=== PATIENT | male | born 1950 | race Two or more races ===

== ENCOUNTER 2018-10-27 11:50 | Inpatient (IN) | payer OTHER ==
[~2018-10-27] VITALS: Ht 185.4 cm; Wt 96.0 kg
[~2018-10-27 11:50] MED LIST: Aspirin PO; CYCL1TAB18 PO; INSUINJ47 IJ; METF-372 PO; SIMV-13 PO
[2018-10-27] MEDS ORDERED: SODIUM CHLORIDE 0.9% 1,000 ML IVB ONE (11:57)
[2018-10-27] MEDS ORDERED: CLINDAMYCIN 900MG IV 50 ML IV ONE (12:30)
[2018-10-27] MEDS ORDERED: KETOROLAC TROMETH 30 MG/ML 1ML VIAL IV ONE (12:30)
[2018-10-27 13:56] LABS: Basophils # (auto) 0 uL; Basophils % (auto) 0.4 % (0.0-2.0); Eosinophils # (auto) 0 uL; Hemoglobin 13.2 g/dL (13.5-17.5); Lymphocytes # (auto) 0.7 uL; Lymphocytes % (auto) 8.6 % (10.0-50.0); Mean Corpuscular Hemoglobin 30.7 pg (28.0-32.0); Mean Corpuscular Hgb Conc. 33.8 g/dL (32.0-36.0); Mean Corpuscular Volume 90.9 fL (80.0-100.0); Monocytes # (auto) 0.7 uL; Monocytes % (auto) 7.5 % (0.0-12.0); Neutrophils # (auto) 7.2 uL; Neutrophils % (auto) 83.5 % (37.0-80.0); Platelet Count (auto) 173 10^3/uL (140-450); Red Blood Cells 4.29 10^6/uL (4.5-5.90); Red Cell Distribution Width 13.5 % (11.8-14.3); White Blood Cell 8.7 10^3/uL (4.4-10.8)
[2018-10-27 14:09] LABS: INR 1.06 (0.9-1.15); Partial Thromboplastin Time 31.9 sec (23.78-33.04); Prothrombin Time 11.3 sec (9.27-12.13)
[2018-10-27 14:22] LABS: Alkaline Phosphatase 122 U/L (45-117); Bilirubin, Total 1.1 mg/dL (0.2-1.0); GFR African American 56 mL/min; GFR Non-African American 46 mL/min; Total Protein 7.7 g/dL (6.4-8.2)
[2018-10-27 14:46] LABS: CRP High Sensitivity > 19.0 mg/dL (< 0.3)
[2018-10-27 14:47] LABS: Anion Gap 7 (5-15); BUN/Creatinine Ratio 19.6; Blood Urea Nitrogen 31 mg/dL (7-18); Carbon Dioxide 25 mmol/L (21-32); Chloride 98 mmol/L (98-107); Potassium 4.5 mmol/L (3.5-5.1); Sodium 130 mmol/L (136-145)
[2018-10-27 14:49] LABS: Alanine Aminotransferase 16 U/L (16-61); Albumin 3.6 g/dL (3.4-5.0); Aspartate Aminotransferase 6 U/L (15-37); Magnesium 2.2 mg/dL (1.6-2.6)
[2018-10-27 14:50] LABS: Blood Alcohol < 3.0 mg/dL (0-5)
[2018-10-27 14:54] LABS: Glucose 495 mg/dL (74-106)
[2018-10-27] MEDS ORDERED: InsuLIN REG 1unit/0.01ml Soln (100units/ml) IV ONE (15:15)
[2018-10-27] MEDS ORDERED: DEXTROSE (50%) 50ML SYRG IV PRN (17:45)
[2018-10-27] MEDS ORDERED: NITROGLYCERIN 0.4 MG SL TAB SL PRN (17:45)
[2018-10-27] MEDS ORDERED: PATIENTS OWN MEDICATION (Cyclobenzaprine Hcl 10 MG) PO PRN (17:45)
[2018-10-27] MEDS ORDERED: MORPHINE SULFATE 4 MG/ML SYR/VIAL IV PRN ×2 (17:45)
[2018-10-27] MEDS ORDERED: VANCOMYCIN PER PHARMACY 0 MG IV SCH (17:45)
[2018-10-27] MEDS ORDERED: ONDANSETRON HCL 4 MG/2 ML VIAL IV PRN (17:45)
[2018-10-27] MEDS ORDERED: PATIENTS OWN MEDICATION (Simvastatin 1 TAB) PO SCH (18:00)
[2018-10-27] MEDS ORDERED: CYCLOBENZAPRINE HCL 10 MG TAB PO PRN (18:15)
--- NOTE | 2018-10-27 18:55 | NUR ---
MS admit from ER ELIZABETHCHINEDU admitted to MS. no REPORT/SBAR given by Imelda ANGELES. Patient oriented to MECHE MIKE, primary RN, unit, room, bed, and unit policies regarding patient care and visiting hours. NOted soiled dressing on left foot.Patient weighed by bedscale and encouraged to call if they need something. All questions and concerns addressed, patient verbalized understanding. Endorsed to Pari ANGELES, four slide operator to complete admission assessment for interview and to do the wound culture swab and pictures.
[2018-10-27] MEDS: metroNIDAZOLE 500MG/100ML 100 ML IV SCH ×2 (19:33→23:28)
[2018-10-27] MEDS: SODIUM CHLORIDE 0.9% 1,000 ML IV SCH (19:33)
--- NOTE | 2018-10-27 19:40 | NUR ---
CALLED PHARMACIST TO HAVE [facility]ONIGHT, SAID THEY WILL DELIVER THE MEDICINE TO MEDICATION ROOM.
--- NOTE | 2018-10-27 19:45 | NUR ---
Opening Shift Note Assumed care of patient, awake and alert. No S/S of distress/SOB or pain. Instructed on POC and to call for assist PRN, will continue to monitor for changes Q1hr and PRN.
--- NOTE | 2018-10-27 19:55 | NUR ---
FLU CX SENT TO LAB
--- NOTE | 2018-10-27 21:15 | NUR ---
URINE DRUG SCREEN SENT TO LAB
[2018-10-27] MEDS: VANCOMYCIN 1,250 MG in D5W 5% 250 ML IV SCH (21:16)
[2018-10-27] MEDS: DAKINS QUARTER STR 0.125% (NaHypochlorite) 473 ML TOPICAL SOL TOP SCH (21:16)
[2018-10-27] MEDS: ATORVASTATIN 20 MG TAB PO SCH (21:17)
--- NOTE | 2018-10-27 22:23 | NUR ---
BLOOD SUGAR 476 WILL REPEAT IN 1 HR. PATIENT CONSUME 100% OF DINNER LATE.
[2018-10-27 22:27] LABS: Alcohol, Urine < 3.0 mg/dL (0-5); Amphetamine Screen, Urine NEGATIVE (NEGATIVE); Barbiturate Scree,Urine NEGATIVE (NEGATIVE); Benzodiazephine Screen, Urine NEGATIVE (NEGATIVE); Cannabinoid Screen, Urine NEGATIVE (NEGATIVE); Cocaine Screen, Urine NEGATIVE (NEGATIVE); Opiate Scree,Urine NEGATIVE (NEGATIVE); Phencyclidine Screen, Urine NEGATIVE (NEGATIVE)
--- NOTE | 2018-10-27 23:18 | NUR ---
PHOTO OF TOE WOUND AND CULTURE TAKEN AND SENT TO LAB
[2018-10-27 23:23] VITALS: BP 112/58
[2018-10-27] MEDS: ACCU-CHEK COMFORT CURVE STRIP VI SCH (23:27)
[2018-10-27] MEDS: InsuLIN REG 1unit/0.01ml Soln (100units/ml) SC SCH (23:27)
[2018-10-27] MEDS: INSULIN LANTUS (GLARGINE) 1 /0.01ml (100units/ml) SC SCH (23:27)
[2018-10-27] MEDS: HYDROcodone-ACET 5/325MG TAB PO PRN (23:47)
[2018-10-28 05:57] VITALS: BP 107/54
[2018-10-28] MEDS: SODIUM CHLORIDE 0.9% 1,000 ML IV SCH ×2 (06:27→15:18)
[2018-10-28] MEDS: metroNIDAZOLE 500MG/100ML 100 ML IV SCH ×3 (06:28→18:07)
[2018-10-28] MEDS: InsuLIN REG 1unit/0.01ml Soln (100units/ml) SC SCH ×4 (06:28→22:17)
[2018-10-28] MEDS: INSULIN LANTUS (GLARGINE) 1 /0.01ml (100units/ml) SC SCH ×2 (06:28→22:17)
[2018-10-28] MEDS: ACCU-CHEK COMFORT CURVE STRIP VI SCH ×4 (06:28→22:05)
[2018-10-28 07:36] VITALS: BP 124/69
[2018-10-28 08:00] VITALS: BP 124/69
--- NOTE | 2018-10-28 08:30 | NUR ---
Bedside Dr. Olivarez bedside consent obtained. performed incision, debridement, and biopsy. Patient tolerated procedure.
[2018-10-28] MEDS: cefTRIAXone 1GM/50ML D5W 50 ML IV SCH (09:44)
[2018-10-28] MEDS: DAKINS QUARTER STR 0.125% (NaHypochlorite) 473 ML TOPICAL SOL TOP SCH (09:44)
[2018-10-28] MEDS: HYDROcodone-ACET 5/325MG TAB PO PRN ×2 (09:45→15:24)
[2018-10-28] MEDS ORDERED: ASPirin-EC 325mg tab PO SCH (10:00)
[2018-10-28] MEDS ORDERED: INFLUENZA QUAD 2018-2019 0.5 ML SYRG IM SCH (10:00)
[2018-10-28] MEDS ORDERED: PNEUMOCOCCAL VACC POLYS 25 MCG/0.5 ML VIAL IM SCH (10:00)
[2018-10-28] MEDS ORDERED: DAKINS QUARTER STR 0.125% (NaHypochlorite) 473 ML TOPICAL SOL TOP SCH (10:00)
[2018-10-28 11:55] LABS: Potassium 3.9 mmol/L (3.5-5.1)
[2018-10-28] MEDS ORDERED: LORazepam 2MG/ML-1ML VIAL IV ONE (12:30)
--- NOTE | 2018-10-28 13:12 | NUR ---
Opening Shift Note Assumed care of patient, awake and alert. No S/S of distress/SOB or pain. Instructed on POC and to call for assist PRN, will continue to monitor for changes. IV is right forearm patent, asymptomatic, clean and dry. Bed in lowest position and call light within reach. Wound on left greater toe was open to air. Addendum: 10/28/18 at 1322 by Guilherme Medina RN Documented incorrect time. Correct time is 0800.
--- NOTE | 2018-10-28 13:42 | NUR ---
MRI Patient taken to MRI via wheelchair, no distress noted upon departure.
[2018-10-28 14:13] VITALS: BP 103/60
--- NOTE | 2018-10-28 15:50 | NUR ---
WOUND CARE NOTE: Wound care consult received for diabetic foot ulcer Patient is currently being seen and treated by podiatry for diabetic ulcer and orders in chart for dressing changes. No need for wound care team at this time. Bedside RN, Jenifer bermudez.
[2018-10-28 17:19] VITALS: BP 133/69
--- NOTE | 2018-10-28 19:18 | NUR ---
Pt iis an alert and oriented male who is forgetful with some intermittent confusion. Pt resides with his spouse, who is is primary caregiver. Per spouse she is assited with pt's needs by her son. Pt has a cane, fww, and bsc at home. SS consult regrding pt needing assistance with insurance and finding a pcp. Spouse confirmed that pt belongs to [facility] and his pcp is Dr. Landers. No other needs verbalized at this time. Will continue to monitor and provide intervention as appropriate. Addendum: 10/28/18 at 1924 by EDILMA LORENZO Amended: Links added.
--- NOTE | 2018-10-28 19:35 | NUR ---
OPENING NOTES RECEIVED REPORT FROM DAY SHIFT NURSE. PT IS ALERT AND ORIENTED X 4 WITH NO S/S OF DISTRESS BUT PAIN 3/10 ON THE LT FOOT. DRESSING ON LT FOOT IS CLEAN AND INTACT. BED IS IN LOWEST POSITION WITH SIDE RAILS UP X 2. CALL LIGHT IS WITH IN REACH AND BED BRAKES ARE LOCKED. POC DISCUSSED WITH PATIENT.
--- NOTE | 2018-10-28 19:44 | NUR ---
Care endorsed to KARTHIK Bahena, night nurse.
[2018-10-28] MEDS: VANCOMYCIN 1,250 MG in D5W 5% 250 ML IV SCH (20:04)
[2018-10-28 22:00] VITALS: BP 134/69
[2018-10-28] MEDS: ATORVASTATIN 20 MG TAB PO SCH (22:05)
[2018-10-29] MEDS: metroNIDAZOLE 500MG/100ML 100 ML IV SCH ×3 (00:31→12:18)
[2018-10-29] MEDS: SODIUM CHLORIDE 0.9% 1,000 ML IV SCH (04:24)
[2018-10-29 05:00] VITALS: BP 138/77
--- NOTE | 2018-10-29 05:01 | NUR ---
DRESSING REINFORCED LT FOOT DRESSING LOOSE AND DETACHING, REINFORCED WITH NEW KERLIX AND ADHESIVE TAPE. WOUND EXHIBITED NO DRAINAGE NOR ODOR.
[2018-10-29] MEDS: INSULIN LANTUS (GLARGINE) 1 /0.01ml (100units/ml) SC SCH ×2 (06:34→22:23)
[2018-10-29] MEDS: ACCU-CHEK COMFORT CURVE STRIP VI SCH ×4 (06:34→22:23)
[2018-10-29] MEDS: InsuLIN REG 1unit/0.01ml Soln (100units/ml) SC SCH ×4 (06:34→22:22)
--- NOTE | 2018-10-29 07:11 | NUR ---
ENDORSED CARE TO DAY SHIFT NURSE, MAR Cordero
--- NOTE | 2018-10-29 08:00 | NUR ---
Opening Shift Note Assumed care of patient, sleeping with regular respirations. No S/S of distress/SOB or pain. IV to right forearm out, laying in bed with fluids running, angiocath intact. New IV obtained by inserting a 20 gauge to the left forearm, patent and infusing 0.9% NS @ 60 ml/hr. Instructed on POC and to call for assist PRN, verbalized understanding. Bed locked, in lowest position, call light within reach, will continue to monitor for changes Q1hr and PRN.
[2018-10-29 08:24] VITALS: BP 129/77
[2018-10-29] MEDS: ASPirin-EC 81 mg tab PO SCH (10:08)
[2018-10-29] MEDS: cefTRIAXone 1GM/50ML D5W 50 ML IV SCH (10:08)
--- NOTE | 2018-10-29 13:35 | NUR ---
Patient appears to be groggy, able to answer questions appropriately but forgetting to call for assistance, peed on the floor, this is a change in mentation from yesterday, 10/28/2018. V/S 125/76, P 104, R 18, T 97.9 F, O2 97% on room air. POC 207. Notified Dr Pearson, at bedside, new orders received and followed through. Bed alarm on for patient safety. Bed locked, in lowest position, call light within reach.
[2018-10-29 14:20] LABS: Basophils # (auto) 0 uL; Basophils % (auto) 0.7 % (0.0-2.0); Eosinophils # (auto) 0.1 uL; Eosinophils % (auto) 1.1 % (0.0-7.0); Hematocrit 36.6 % (41.0-53.0); Hemoglobin 12.7 g/dL (13.5-17.5); Lymphocytes % (auto) 15.9 % (10.0-50.0); Mean Corpuscular Hemoglobin 30.8 pg (28.0-32.0); Mean Corpuscular Hgb Conc. 34.6 g/dL (32.0-36.0); Mean Corpuscular Volume 88.9 fL (80.0-100.0); Monocytes # (auto) 0.6 uL; Monocytes % (auto) 10.1 % (0.0-12.0); Neutrophils # (auto) 4.5 uL; Neutrophils % (auto) 72.2 % (37.0-80.0); Platelet Count (auto) 187 10^3/uL (140-450); Red Blood Cells 4.12 10^6/uL (4.5-5.90); Red Cell Distribution Width 13.5 % (11.8-14.3); White Blood Cell 6.2 10^3/uL (4.4-10.8)
[2018-10-29 14:32] VITALS: BP 146/87
[2018-10-29 14:34] LABS: BUN/Creatinine Ratio 16.7; Calcium 8.2 mg/dL (8.5-10.1); Potassium 3.8 mmol/L (3.5-5.1)
[2018-10-29] MEDS: DAKINS QUARTER STR 0.125% (NaHypochlorite) 473 ML TOPICAL SOL TOP SCH (14:49)
--- NOTE | 2018-10-29 16:15 | NUR ---
Patient continually getting out of bed to urinate, does not call on the call light despite reinforcing the use of the call light. When asked which button to use to call for help when he needs to get out of bed, he is able to correctly point to the nurses button. Patient then proceeds to stand at the bedside and urinate on the floor, despite the urinal being at the bedside, within reach. Notified KARTHIK Serrato, Charge Nurse, verbalized understanding. Bed alarm remains on for patient safety. Bed locked, in lowest position, call light within reach.
[2018-10-29 16:38] VITALS: BP 125/76
--- NOTE | 2018-10-29 16:45 | NUR ---
Patient remains groggy, nut awakens to name and able to answer questions appropriately. Patient moved to room 277-A from 298-B to be closer to the nurses station. Bed alarm remains on for patient safety. Bed locked, in lowest position, call light within reach.
[2018-10-29] MEDS: ACETAMINOPHEN 500 MG TAB PO PRN (17:32)
[2018-10-29] MEDS: VANCOMYCIN 1,250 MG in D5W 5% 250 ML IV SCH ×2 (18:33→19:05)
--- NOTE | 2018-10-29 18:51 | NUR ---
FAMILY Corrie Catherine, patient's and son at bedside. Updated on patients change in mentation, being groggy, frequently getting up to urinate, urinating on the floor and not using the call light despite correctly pointing to the nurses button on the call light when asked what to do when he feels the need to get up to urinate. Per , patient had been this way at home prior to coming in, urinating on the floor and appearing "disoriented". Per Corrie, patients , patient has been seen outpatient by a Urologist for prostate "problems". signed all consents for procedure tomorrow morning. All questions and concerns answered. Bed alarm on for patient safety, bed locked, in lowest position, call light within reach.
--- NOTE | 2018-10-29 19:20 | NUR ---
Opening Shift Note Assumed care of patient, awake and alert. No S/S of distress/SOB or pain. Ins ructed on POC and to call for assist PRN, will continue to monitor for changes Q1hr and PRN.
--- NOTE | 2018-10-29 19:36 | NUR ---
Care endorsed to KARTHIK Holm, night nurse.
[2018-10-29] MEDS: ATORVASTATIN 20 MG TAB PO SCH (21:52)
[2018-10-29 22:00] VITALS: BP 118/68
[2018-10-30] MEDS: SODIUM CHLORIDE 0.9% 1,000 ML IV SCH (02:02)
--- NOTE | 2018-10-30 05:00 | NUR ---
Chlorhexidine wipes administered
[2018-10-30 05:47] LABS: Urine Bacteria NONE SEEN /hpf (None Seen); Urine Blood 1+ /uL (Negative); Urine Specific Gravity 1.007 (1.001-1.035); Urine WBC <1 /hpf (0 - 3)
[2018-10-30 05:51] VITALS: BP 119/62
[2018-10-30 06:45] LABS: Basophils # (auto) 0 uL; Basophils % (auto) 0.4 % (0.0-2.0); Eosinophils # (auto) 0.1 uL; Hematocrit 35.2 % (41.0-53.0); Hemoglobin 12.2 g/dL (13.5-17.5); Lymphocytes # (auto) 1.3 uL; Lymphocytes % (auto) 21.8 % (10.0-50.0); Mean Corpuscular Hemoglobin 30.4 pg (28.0-32.0); Mean Corpuscular Hgb Conc. 34.5 g/dL (32.0-36.0); Monocytes # (auto) 0.7 uL; Monocytes % (auto) 11.7 % (0.0-12.0); Neutrophils # (auto) 3.8 uL; Neutrophils % (auto) 65.1 % (37.0-80.0); Nucleated Red Blood Cells % 0.1 %; Platelet Count (auto) 191 10^3/uL (140-450); White Blood Cell 5.8 10^3/uL (4.4-10.8)
[2018-10-30] MEDS: InsuLIN REG 1unit/0.01ml Soln (100units/ml) SC SCH ×4 (07:00→22:26)
--- NOTE | 2018-10-30 07:00 | NUR ---
Patient is alert and awake, no distress noted and patient denies pain. Blood sugar is 189.
[2018-10-30] MEDS: INSULIN LANTUS (GLARGINE) 1 /0.01ml (100units/ml) SC SCH ×2 (07:01→22:27)
[2018-10-30] MEDS: ACCU-CHEK COMFORT CURVE STRIP VI SCH ×4 (07:02→22:27)
[2018-10-30 07:03] LABS: Calcium 8.4 mg/dL (8.5-10.1); Potassium 3.4 mmol/L (3.5-5.1)
[2018-10-30 07:05] LABS: BUN/Creatinine Ratio 16.1
[2018-10-30] MEDS ORDERED: IODIXANOL 320MG/ML 100ML BTL IV ONE (07:07)
[2018-10-30] MEDS ORDERED: LIDOCAINE 2%HCL (LOCAL ANESTH.) INJ 20ML MDV ONE ×2 (07:07→08:33)
--- NOTE | 2018-10-30 08:00 | NUR ---
OPENING SHIFT NOTE: Received report from NOC RNAlta. Assumed care of patient. Patient resting quietly in bed, denies pain. Bed in lowest position, rails x2 and call light within reach. Updated on plan of care. Will continue to monitor.
--- NOTE | 2018-10-30 08:25 | NUR ---
CATHLAB: Patient taken to cathlab via bed. Patient aware that Alta ENGLISH RN contacted family about procedure.
[2018-10-30] MEDS ORDERED: POTASSIUM CHL 20 Meq TABLET PO ONE (08:30)
[2018-10-30] MEDS ORDERED: IOHEXOL 350 MG/ML 100ML IJ ONE ×3 (08:33→11:33)
[2018-10-30] MEDS ORDERED: ANGIOMAX 250 MG VIAL IV ONE ×2 (08:44→11:17)
[2018-10-30] MEDS ORDERED: SODIUM CHL 0.9% 50 ML ONE ×2 (08:45→11:17)
[2018-10-30] MEDS ORDERED: fentaNYL CITRATE 100 MCG/2 ML VL ONE (08:45)
[2018-10-30] MEDS ORDERED: MIDAZOLAM HCL 1MG/1ML-2 ML VIAL ONE (08:45)
[2018-10-30 08:50] VITALS: BP 132/79
[2018-10-30] MEDS: cefTRIAXone 1GM/50ML D5W 50 ML IV SCH (09:00)
[2018-10-30] MEDS: DAKINS QUARTER STR 0.125% (NaHypochlorite) 473 ML TOPICAL SOL TOP SCH (10:00)
[2018-10-30] MEDS: ASPirin-EC 81 mg tab PO SCH (10:00)
[2018-10-30] MEDS ORDERED: NOREPINEPHRINE 8 MG/250ML KIT 250 ML IV ONE (12:42)
--- NOTE | 2018-10-30 13:06 | NUR ---
CATHLAB: Patient returned from cathlab via bed. Report received from KARTHIK Amanda. Visualized right groin site. Site, soft non tender and dressing C/D/I. Patient may ambulate and sit up at 1400. BRIANDA Bonner at bedside assisting with lunch. Patient denies pain. Will continue to monitor.
--- NOTE | 2018-10-30 19:21 | NUR ---
CLOSING SHIFT NOTE: Report given to NOC Aruna ANGELES. Endorsed care of patient.
[2018-10-30 22:00] VITALS: BP 159/94
[2018-10-30] MEDS: ATORVASTATIN 20 MG TAB PO SCH (22:27)
[2018-10-31 05:00] VITALS: BP 113/63
[2018-10-31] MEDS ORDERED: VANCOMYCIN 1,250 MG in D5W 5% 250 ML IV SCH (07:00)
[2018-10-31] MEDS: InsuLIN REG 1unit/0.01ml Soln (100units/ml) SC SCH ×4 (07:15→21:41)
[2018-10-31] MEDS: INSULIN LANTUS (GLARGINE) 1 /0.01ml (100units/ml) SC SCH (07:16)
[2018-10-31] MEDS: ACCU-CHEK COMFORT CURVE STRIP VI SCH ×4 (07:16→21:03)
--- NOTE | 2018-10-31 07:30 | NUR ---
Opening Shift Note Assumed care of patient, awake and alert, oriented x 4 and verbally responsive. Respiratory even and unlabored. No S/S of distress/SOB or pain. Skin is warm and dry to touch. No s/s of hyperglycemia or hypoglycemia noted. S/p LLE angiogram to right groin, dressing dry and intact. Instructed on POC and to call for assist PRN, will continue to monitor for changes Q1hr and PRN.
[2018-10-31] MEDS: ASPirin-EC 81 mg tab PO SCH (09:08)
[2018-10-31] MEDS: cefTRIAXone 1GM/50ML D5W 50 ML IV SCH (09:08)
[2018-10-31] MEDS: DAKINS QUARTER STR 0.125% (NaHypochlorite) 473 ML TOPICAL SOL TOP SCH (09:09)
[2018-10-31 09:18] VITALS: BP 149/78
[2018-10-31 09:34] VITALS: BP 100/56
--- NOTE | 2018-10-31 10:30 | NUR ---
Wound dressing changed to left foot.
[2018-10-31 13:00] VITALS: BP 131/69
[2018-10-31 17:49] VITALS: BP 137/77
--- NOTE | 2018-10-31 19:15 | NUR ---
Opening Shift Note Received report from KARTHIK Mckeon and assumed care of patient, awake and alert. No S/S of distress/SOB or pain. Instructed patient to call for assist if needed and verbalized understanding. Will continue to monitor .
[2018-10-31 21:00] VITALS: BP 145/91
[2018-10-31] MEDS: ATORVASTATIN 20 MG TAB PO SCH (21:02)
[2018-10-31] MEDS: HYDROcodone-ACET 5/325MG TAB PO PRN (21:19)
[2018-11-01] MEDS: INSULIN LANTUS (GLARGINE) 1 /0.01ml (100units/ml) SC SCH ×3 (01:33→22:31)
[2018-11-01 05:11] VITALS: BP 115/74
[2018-11-01] MEDS: HYDROcodone-ACET 5/325MG TAB PO PRN (06:07)
[2018-11-01] MEDS: ACCU-CHEK COMFORT CURVE STRIP VI SCH ×4 (06:08→22:31)
[2018-11-01] MEDS: InsuLIN REG 1unit/0.01ml Soln (100units/ml) SC SCH ×4 (06:44→22:31)
--- NOTE | 2018-11-01 07:40 | NUR ---
Opening Shift Note Assumed care of patient, awake and alert. No S/S of distress/SOB. Patient c/o Instructed on POC and to call for assist PRN, will continue to monitor for changes Q1hr and PRN. Addendum: 11/01/18 at 0939 by Milly Kellogg RN patient c/o left leg pain 03/31
[2018-11-01 08:00] VITALS: BP 124/71
[2018-11-01 08:41] VITALS: BP 96/54
[2018-11-01] MEDS: ASPirin-EC 81 mg tab PO SCH (10:20)
[2018-11-01] MEDS: MORPHINE SULFATE 4 MG/ML SYR/VIAL IV PRN ×2 (10:20→20:43)
[2018-11-01] MEDS: DAKINS QUARTER STR 0.125% (NaHypochlorite) 473 ML TOPICAL SOL TOP SCH (10:21)
[2018-11-01] MEDS: LEVOFLOXACIN 750MG 150 ML IV SCH (10:21)
--- NOTE | 2018-11-01 12:17 | NUR ---
Nutrition Assessment Notes please see attached link for complete assessment Est. Needs BW [id number] kcal (23-25 kcal/kgBW), 92-110 gms pro (1.0-1.2 gms/kgBW r/t wounds). Will continue to monitor pertinent labs and reassess nutrient needs prn Addendum: 11/01/18 at [address] Amended: Links added.
[2018-11-01 13:00] VITALS: BP 110/65
[2018-11-01 17:00] VITALS: BP 118/70
--- NOTE | 2018-11-01 20:30 | NUR ---
Opening Shift Note Assumed care of patient, awake and alert, oriented x4. No S/S of distress/SOB, c/o left great toe pain 03/31, will medicate as ordered and will reassess. Instructed on POC, verbalized understanding and to call for assist PRN, call light within reach, will continue to monitor for changes Q1hr and PRN, non skid socks on. Continue care.
[2018-11-01 22:00] VITALS: BP 150/82
[2018-11-01] MEDS: ATORVASTATIN 20 MG TAB PO SCH (22:31)
[2018-11-02 05:00] VITALS: BP 118/61
[2018-11-02] MEDS: INSULIN LANTUS (GLARGINE) 1 /0.01ml (100units/ml) SC SCH (06:17)
[2018-11-02] MEDS: InsuLIN REG 1unit/0.01ml Soln (100units/ml) SC SCH ×3 (06:17→17:27)
[2018-11-02] MEDS: ACCU-CHEK COMFORT CURVE STRIP VI SCH ×3 (06:17→17:27)
--- NOTE | 2018-11-02 07:40 | NUR ---
OPENING PATIENT IN BED, ASLEEP, BED IN LOWEST POSITION, CALL LIGHT WITHIN REACH. NO DISTRESS NOTED AT THIS TIME. WILL F/U WITH MORNING ASSESSMENT PENDING RADIOLOGY CONSULT PICC LINE CONSULT (PER NOC PATIENT IS UNDECIDED ON WHETHER HE WANTS PICC LINE) JANETH SAW PATIENT FOR DEBRIDEMENT 10/28 LOW EXTREMITY ANGIO 10/30 WITH TREE FOOT MRI SHOWS OSTEOMYELITIS BLOOD CULT NEGATIVE WOUND CULT L BIG TOE POSITIVE MRSA INFLUENZA A & B NEGATIVE P02 76.2 VANCO 5 DRUG SCREEN NEGATIVE UA 4+ [facility] WOUND CARE IS DAILY OFFLOAD THE HEELS
[2018-11-02 09:00] VITALS: BP 115/72
[2018-11-02] MEDS ORDERED: DAKI0.12 TOP (09:46)
[2018-11-02] MEDS ORDERED: ATOR20TA50 PO (09:46)
[2018-11-02] MEDS ORDERED: ASP81EC PO (09:46)
[2018-11-02] MEDS: LEVOFLOXACIN 750MG 150 ML IV SCH (10:46)
[2018-11-02] MEDS: ASPirin-EC 81 mg tab PO SCH (10:46)
[2018-11-02] MEDS: ACETAMINOPHEN 500 MG TAB PO PRN (10:46)
[2018-11-02] MEDS: DAKINS QUARTER STR 0.125% (NaHypochlorite) 473 ML TOPICAL SOL TOP SCH (10:51)
--- NOTE | 2018-11-02 11:28 | NUR ---
ORDER AND CLINICALS FAXED TO [facility] AND [facility] FOR HOME IV ABX. DECEMBER IN MANAGED CARE TO FOLLOW UP WITH AUTHORIZATION.
[2018-11-02 11:29] LABS: INR 1.07 (0.9-1.15); Prothrombin Time 11.4 sec (9.27-12.13)
[2018-11-02 13:00] VITALS: BP 102/64
--- NOTE | 2018-11-02 13:50 | NUR ---
SPOKE WITH PATIENT'S LUCINA ... SHE IS WILLING TO LEARN THE ABX INFUSION AND ASSIST WITH ADMINISTRATION. JUAN AT [facility] ADVISED.
--- NOTE | 2018-11-02 14:54 | NUR ---
PICC line placement Patient/Patient significant other educated on need for PICC line placement. All risks and benefits explained and all questions and concerns addressed prior to procedure. Noted past medical history and allergies with no contraindications. INR and Plt counts within acceptable range. 4 fr PICC line inserted via right basilic vein using [employer] US and Tip Location System. Sterile technique with maximum barrier precautions utilized. Blood return obtained from the lumen and each flushed easily with NS using proper technique. PICC secured with Stat-lock; biodisc and occlusive dressing applied. Stat portable chest x-ray obtained for PICC tip placement. *Baseline Arm Circumference 27cm. Internal length 47cm. External length 1cm. PICC lot # [id number]. Note: Placed easily
[2018-11-02] MEDS ORDERED: LIDOCAINE 1% (LOCAL ANESTH.) PF 5ml SDV ID ONE (15:00)
--- NOTE | 2018-11-02 15:38 | NUR ---
PATIENT HAS BEEN ACCEPTED AT [facility] WITH START OF CARE 11-03-2018 . [facility] INFUSION WILL ARRANGE WITH PATIENT'S A TIME FOR MEDICATION DELIVERY SAWPNA. RADHA [phone].
--- NOTE | 2018-11-02 15:52 | NUR ---
OK to use PICC line Xray completed. OK to use PICC line by Dr. Mckeon.
[2018-11-02 17:00] VITALS: BP 105/66
--- NOTE | 2018-11-02 19:15 | NUR ---
Discharge instructions given as ordered. Encourage to follow up with PMD as instructed. All questions and concerns addressed. Patient verbalized understanding IV removed with catheter intact, pressure dressing applied. Patient taken to vehicle via wheelchair with all personal belongings, accompanied by staff and family member. No distress noted at time of departure. HOME HEALTH HAS BEEN SET UP, SAW THE NOTE AROUND 1850 SENT PATIENT HOME ONCE I SAW HE WAS CLEARED AND SET UP TO GO.
[2018-11-02] MEDS ORDERED: SODIUM CHLOR 0.9% PF (SALINE LOCK) 10ML VIAL/SYR IV SCH (22:00)
== END 2018-11-02 19:15 | disposition home health service (06) | DRG 252 ==
LOC: ER 11:50 → OVERFLOW 17:46 → WEST WING 18:55
PROVIDERS: ADMIT Nurse Practitioner Acute Care; ATTEND Internal Medicine
PROC: 0JBR0ZZ Excision of Left Foot Subcutaneous Tissue and Fascia, Open Approach (ICD-10-PCS; principal; 2018-10-28)
PROC: 047S3ZZ Dilation of Left Posterior Tibial Artery, Percutaneous Approach (ICD-10-PCS; 2018-10-30)
PROC: 047U3ZZ Dilation of Left Peroneal Artery, Percutaneous Approach (ICD-10-PCS; 2018-10-30)
PROC: B41G1ZZ Fluoroscopy of Left Lower Extremity Arteries using Low Osmolar Contrast (ICD-10-PCS; 2018-10-30)
PROC: B41F1ZZ Fluoroscopy of Right Lower Extremity Arteries using Low Osmolar Contrast (ICD-10-PCS; 2018-10-30)
PROC: 02HV33Z Insertion of Infusion Device into Superior Vena Cava, Percutaneous Approach (ICD-10-PCS; 2018-11-02)
DX: E10.52 Type 1 diabetes mellitus with diabetic peripheral angiopathy with gangrene (principal); N17.0 Acute kidney failure with tubular necrosis; L03.116 Cellulitis of left lower limb; M86.10 Other acute osteomyelitis, unspecified site; I70.262 Atherosclerosis of native arteries of extremities with gangrene, left leg; E10.69 Type 1 diabetes mellitus with other specified complication; E10.65 Type 1 diabetes mellitus with hyperglycemia; E10.621 Type 1 diabetes mellitus with foot ulcer; E10.42 Type 1 diabetes mellitus with diabetic polyneuropathy; L97.529 Non-pressure chronic ulcer of other part of left foot with unspecified severity; B95.61 Methicillin susceptible Staphylococcus aureus infection as the cause of diseases classified elsewhere; E10.610 Type 1 diabetes mellitus with diabetic neuropathic arthropathy; D64.9 Anemia, unspecified; E78.5 Hyperlipidemia, unspecified; I10 Essential (primary) hypertension; Z96.653 Presence of artificial knee joint, bilateral; I67.2 Cerebral atherosclerosis; M77.30 Calcaneal spur, unspecified foot; Z79.4 Long term (current) use of insulin; Z86.73 Personal history of transient ischemic attack (TIA), and cerebral infarction without residual deficits; Z89.422 Acquired absence of other left toe(s); Z23 Encounter for immunization; Z87.891 Personal history of nicotine dependence; Z82.49 Family history of ischemic heart disease and other diseases of the circulatory system; Z83.3 Family history of diabetes mellitus
CPT/HCPCS: 36415; 36569; 36600; 37228; 70450; 71045; 73630; 73718; 75630; 75716; 76000; 76942; 80048; 80053; 80202; 80307; 80320; 81001; 82140; 82805; 82962; 83036; 83605; 83735; 83880; 84443; 84484; 85025; 85610; 85652; 85730; 86141; 86850; 86900; 86901; 87040; 87077; 87186; 87205; 87804; 93923; 94761; 96361; 96365; 96375; A6257; G0378; J0696; J1815; J1885; J1956; J2250; J3490; J7060; Q9967

== ENCOUNTER 2018-11-17 14:53 | Inpatient (IN) | payer OTHER ==
[~2018-11-17] VITALS: Ht 185.4 cm; Wt 84.4 kg
[~2018-11-17 14:53] MED LIST changes: +ASP81EC PO; +ATOR20TA50 PO; -Aspirin PO; +DAKI0.12 TOP; -SIMV-13 PO
--- NOTE | 2018-11-17 15:30 | NUR ---
HOSPITALIST AT BEDSIDE. Addendum: 11/17/18 at 1654 by MAR LEDESMA RN CORRECT TIME FOR NOTE IS 8066
--- NOTE | 2018-11-17 15:50 | NUR ---
Direct Admit Note CHINEDU JOHNSON admitted to Telemetry/MS unit as a direct admit per MD order. Patient oriented to MAR blake RN, unit, room, bed, and unit policies regarding patient care and visiting hours. Patient encouraged to call if they need something. All questions and concerns addressed, patient verbalized understanding. MD notified of patients arrival and admit orders received. Addendum: 11/17/18 at 1841 by MAR LEDESMA RN CAME IN WITH PICC TO RIGHT UPPER ARM DATED 11/11/18, DRESSING CLEAN, DRY, AND INTACT.
--- NOTE | 2018-11-17 16:10 | NUR ---
WOUND PICTURES TAKEN.
[2018-11-17] MEDS ORDERED: MORPHINE SULFATE 4 MG/ML SYR/VIAL IV PRN (16:15)
[2018-11-17] MEDS ORDERED: DEXTROSE (50%) 50ML SYRG IV PRN (16:15)
[2018-11-17] MEDS ORDERED: traMADol HCL 50 MG TAB PO PRN (16:15)
[2018-11-17] MEDS ORDERED: ONDANSETRON HCL 4 MG/2 ML VIAL IV PRN (16:15)
[2018-11-17] MEDS ORDERED: VANCOMYCIN PER PHARMACY 0 MG IV SCH (16:15)
[2018-11-17] MEDS ORDERED: NITROGLYCERIN 0.4 MG SL TAB SL PRN (16:15)
[2018-11-17] MEDS ORDERED: ACETAMINOPHEN 500 MG TAB PO PRN (16:15)
--- NOTE | 2018-11-17 16:30 | NUR ---
PER HOSPITALIST, OK TO USE PICC.
--- NOTE | 2018-11-17 16:45 | NUR ---
PATIENT GIVEN SNACK PER REQUEST
[2018-11-17 17:00] VITALS: BP 107/60
[2018-11-17] MEDS: LEVOFLOXACIN 750MG 150 ML IV SCH (18:00)
[2018-11-17 18:12] LABS: Basophils # (auto) 0 uL; Basophils % (auto) 0.6 % (0.0-2.0); Eosinophils # (auto) 0.1 uL; Eosinophils % (auto) 1.9 % (0.0-7.0); Hematocrit 35.4 % (41.0-53.0); Lymphocytes # (auto) 1.3 uL; Lymphocytes % (auto) 25.8 % (10.0-50.0); Mean Corpuscular Hemoglobin 30.1 pg (28.0-32.0); Mean Corpuscular Hgb Conc. 33.9 g/dL (32.0-36.0); Mean Corpuscular Volume 88.6 fL (80.0-100.0); Monocytes # (auto) 0.4 uL; Monocytes % (auto) 7.3 % (0.0-12.0); Neutrophils # (auto) 3.1 uL; Neutrophils % (auto) 64.4 % (37.0-80.0); Platelet Count (auto) 253 10^3/uL (140-450); Red Blood Cells 3.99 10^6/uL (4.5-5.90); Red Cell Distribution Width 13.6 % (11.8-14.3); White Blood Cell 4.9 10^3/uL (4.4-10.8)
[2018-11-17 18:26] LABS: BUN/Creatinine Ratio 20.9; Calcium 8.5 mg/dL (8.5-10.1); Potassium 4.4 mmol/L (3.5-5.1)
[2018-11-17] MEDS: ACCU-CHEK COMFORT CURVE STRIP VI SCH ×2 (18:29→21:35)
[2018-11-17] MEDS: InsuLIN REG 1unit/0.01ml Soln (100units/ml) SC SCH ×2 (18:29→21:40)
[2018-11-17] MEDS ORDERED: LEVO750T2 IV (18:37)
[2018-11-17] MEDS ORDERED: INSLANTI SC (18:37)
--- NOTE | 2018-11-17 19:05 | NUR ---
Opening Shift Note SBAR report received from KARTHIK Burgess. Assumed care of patient, awake and alert 4x, visitors at bedside. No S/S of distress/SOB or pain. Instructed on POC and to call for assistance PRN, will continue to monitor for changes Q1hr and PRN.Physical Assessment to follow.
--- NOTE | 2018-11-17 19:13 | NUR ---
CLOSING NOTE REPORT GIVEN TO BEEF LUGGER RN. FAMILY AT BEDSIDE. NO S/S OF DISTRESS. IV PATENT AND RUNNING. DRESSING TO LEFT FOOT CLEAN, DRY, AND INTACT. BED IN LOW LOCK POSITION, CALL LIGHT IN REACH.
[2018-11-17] MEDS ORDERED: VANCOMYCIN 1GM/250ML 250 ML IV ONE (20:00)
[2018-11-17 20:05] VITALS: BP 98/54
[2018-11-17] MEDS: DOCUSATE SOD 100 MG CAP PO SCH (21:27)
[2018-11-17] MEDS: ATORVASTATIN 20 MG TAB PO SCH (21:27)
[2018-11-17] MEDS: INSULIN LANTUS (GLARGINE) 1 /0.01ml (100units/ml) SC SCH (21:40)
[2018-11-18 05:02] VITALS: BP 123/79
[2018-11-18] MEDS: InsuLIN REG 1unit/0.01ml Soln (100units/ml) SC SCH ×4 (06:25→22:00)
[2018-11-18] MEDS: ACCU-CHEK COMFORT CURVE STRIP VI SCH ×4 (06:25→21:57)
--- NOTE | 2018-11-18 08:00 | NUR ---
ASSESSMENT NOTE PT IS ALERT ORIENTED X4, RESTING IN BED COMFORTABLY, DENIES ANY PAIN AT THIS TIME 0/10, DRY CLEAN DRESSING NOTED AT LEFT FOOT AREA, SELF REPOSITION NEEDED, CALL LIGHT WITHIN REACH.
[2018-11-18] MEDS: DOCUSATE SOD 100 MG CAP PO SCH ×2 (08:40→21:58)
[2018-11-18] MEDS: PANTOPRAZOLE 40 MG TAB PO SCH (08:40)
--- NOTE | 2018-11-18 09:00 | NUR ---
FAMILY PT SKY AT BED SIDE
[2018-11-18 09:29] VITALS: BP 130/76
[2018-11-18 10:43] LABS: Calcium 8.5 mg/dL (8.5-10.1); Potassium 4.3 mmol/L (3.5-5.1)
[2018-11-18 10:45] LABS: BUN/Creatinine Ratio 21.1
[2018-11-18 12:55] VITALS: BP 136/74
--- NOTE | 2018-11-18 13:30 | NUR ---
DR GALLEGOS AT BED SIDE FOLLOWING UP ON PT WITH NEW ORDERS, PT'S AT BED SIDE AWARE.
[2018-11-18] MEDS: SODIUM CHLORIDE 0.9% 1,000 ML IV SCH (14:26)
[2018-11-18] MEDS: VANCOMYCIN 1GM/250ML 250 ML IV SCH (14:26)
--- NOTE | 2018-11-18 16:00 | NUR ---
PT IS OUT OF BED, SITTING ON A CHAIR AT BED SIDE WITH HIS .
[2018-11-18 16:35] VITALS: BP 124/74
[2018-11-18] MEDS: LEVOFLOXACIN 750MG 150 ML IV SCH (17:30)
--- NOTE | 2018-11-18 18:07 | NUR ---
PT CONTINUE STABLE, CONTINUE MONITORING.
[2018-11-18] MEDS: INSULIN LANTUS (GLARGINE) 1 /0.01ml (100units/ml) SC SCH (21:57)
[2018-11-18] MEDS: ATORVASTATIN 20 MG TAB PO SCH (21:58)
[2018-11-18 22:00] VITALS: BP 112/64
[2018-11-19] MEDS: VANCOMYCIN 1GM/250ML 250 ML IV SCH ×2 (04:19→17:38)
[2018-11-19 04:42] VITALS: BP 118/72
--- NOTE | 2018-11-19 05:02 | NUR ---
Shift Note The patient had an uneventful night, tolerated treatments well, had no complaints. He was able to sleep most of the night, no pain issues. He awaken several times throughout the night but was able to go back to sleep. Will continue to monitor.
[2018-11-19] MEDS: InsuLIN REG 1unit/0.01ml Soln (100units/ml) SC SCH ×4 (06:39→22:24)
[2018-11-19] MEDS: ACCU-CHEK COMFORT CURVE STRIP VI SCH ×4 (06:39→22:24)
[2018-11-19 06:52] LABS: Basophils # (auto) 0.1 uL; Eosinophils # (auto) 0.2 uL; Eosinophils % (auto) 3.3 % (0.0-7.0); Hematocrit 36.5 % (41.0-53.0); Hemoglobin 12.5 g/dL (13.5-17.5); Lymphocytes # (auto) 1.7 uL; Lymphocytes % (auto) 29.8 % (10.0-50.0); Mean Corpuscular Hgb Conc. 34.1 g/dL (32.0-36.0); Monocytes # (auto) 0.4 uL; Monocytes % (auto) 6.5 % (0.0-12.0); Neutrophils # (auto) 3.5 uL; Neutrophils % (auto) 59.4 % (37.0-80.0); Nucleated Red Blood Cells % 0.1 %; Platelet Count (auto) 256 10^3/uL (140-450); Red Blood Cells 4.15 10^6/uL (4.5-5.90); Red Cell Distribution Width 13.4 % (11.8-14.3); White Blood Cell 5.8 10^3/uL (4.4-10.8)
[2018-11-19 07:08] LABS: Magnesium 1.8 mg/dL (1.6-2.6); Potassium 4.4 mmol/L (3.5-5.1)
[2018-11-19 07:10] LABS: BUN/Creatinine Ratio 23.6
[2018-11-19] MEDS: SODIUM CHLORIDE 0.9% 1,000 ML IV SCH (08:10)
[2018-11-19 09:00] VITALS: BP 135/76
[2018-11-19] MEDS: PANTOPRAZOLE 40 MG TAB PO SCH (10:29)
[2018-11-19] MEDS: DOCUSATE SOD 100 MG CAP PO SCH (10:29)
[2018-11-19 11:58] VITALS: BP 115/66
[2018-11-19] MEDS ORDERED: MAGNESIUM SULFATE 1GM/100ML 100 ML IV ONE (12:00)
--- NOTE | 2018-11-19 14:20 | NUR ---
WOUND CARE NOTE: Wound care consult received for left toe necrotic wound. Patient is a 68 yo male admitted for diabetic foot wound to left foot. Patient with history of HTN, HLD, diabetes, osteomyelitis, CVA, and IL. Patient recently discharge from [facility] on IV antibiotics for left great toe wound. Patient was told to return to ER when wound was not improving. Patient is alert, denies pain. Last Martínez score is 19. Patient has been seen by podiatry and patient is agreeable to have toe now amputated. RECOMMENDATIONS: Nursing to cleanse left great toe wound with wound cleanser, pat dry, apply betadine moist gauze and wrap with kerlex daily/PRN until surgery; further orders to be given by podiatry; no need for wound care team to follow.
[2018-11-19] MEDS: LEVOFLOXACIN 750MG 150 ML IV SCH (16:33)
[2018-11-19 16:51] VITALS: BP 127/74
[2018-11-19] MEDS ORDERED: DEXTROSE (50%) 50ML SYRG IV PRN (18:30)
[2018-11-19 22:00] VITALS: BP 125/70
[2018-11-19] MEDS ORDERED: INSULIN LANTUS (GLARGINE) 1 /0.01ml (100units/ml) SC SCH (22:00)
[2018-11-19] MEDS: POVIDONE IODINE 10 % TOPICAL OINT 30GM TOP SCH (22:23)
[2018-11-19] MEDS: DAKINS HALF STR 0.25% (NaHypochlorite) 473 ML TOPICAL SOL TOP SCH (22:23)
[2018-11-20 05:00] VITALS: BP 126/76
[2018-11-20] MEDS: ACCU-CHEK COMFORT CURVE STRIP VI SCH ×4 (06:15→22:24)
[2018-11-20] MEDS: InsuLIN REG 1unit/0.01ml Soln (100units/ml) SC SCH ×4 (06:15→22:24)
--- NOTE | 2018-11-20 06:46 | NUR ---
Shift Note The patient had an uneventful night, tolerated treatments well, had no complaints. The cigarette tester said he wanted to take the patient to surgery today to remove the Left Great Toe but didn't place orders or have the patient scheduled as of 0600hrs. Kept the patient NPO as of midnight and explained to him and his family the current plan. The seemed a little frustrated not knowing a specific time but understood the explanation. Will continue to monitor.
[2018-11-20 09:10] VITALS: BP 139/84
[2018-11-20] MEDS: PANTOPRAZOLE 40 MG TAB PO SCH (09:47)
[2018-11-20] MEDS: POVIDONE IODINE 10 % TOPICAL OINT 30GM TOP SCH ×2 (09:47→22:00)
[2018-11-20] MEDS: DAKINS HALF STR 0.25% (NaHypochlorite) 473 ML TOPICAL SOL TOP SCH ×2 (09:47→22:00)
[2018-11-20] MEDS: LEVOFLOXACIN 750MG 150 ML IV SCH (09:47)
[2018-11-20] MEDS: traMADol HCL 50 MG TAB PO PRN (09:48)
[2018-11-20] MEDS ORDERED: VANCOMYCIN PER PHARMACY 0 MG IV SCH (10:00)
--- NOTE | 2018-11-20 12:20 | NUR ---
Nutrition Assessment Notes Please see attached link for complete assessment Est. Needs based on BW (93 kg): [id number] kcal (23-25 kcal/kgBW), 93-111 gms pro (1.0-1.2 gms/kgBW r/t wounds). Will continue to monitor pertinent labs and reassess nutrient needs prn Addendum: 11/20/18 at [address] Amended: Links added.
[2018-11-20 13:00] VITALS: BP 133/74
[2018-11-20 16:51] VITALS: BP 114/81
[2018-11-20] MEDS: VANCOMYCIN 1,250 MG in D5W 5% 250 ML IV SCH (16:53)
[2018-11-20 21:46] VITALS: BP 123/67
[2018-11-20] MEDS: MULTIPLE VITAMINS W/ MINERALS TAB PO SCH (22:21)
[2018-11-20] MEDS: ASCORBIC ACID 500 MG TAB PO SCH (22:21)
[2018-11-20] MEDS: INSULIN LANTUS (GLARGINE) 1 /0.01ml (100units/ml) SC SCH (22:23)
[2018-11-21 04:44] VITALS: BP 98/61
[2018-11-21] MEDS: VANCOMYCIN 1,250 MG in D5W 5% 250 ML IV SCH ×2 (05:18→16:50)
[2018-11-21] MEDS: InsuLIN REG 1unit/0.01ml Soln (100units/ml) SC SCH ×4 (06:13→21:56)
[2018-11-21] MEDS: ACCU-CHEK COMFORT CURVE STRIP VI SCH ×4 (06:14→21:57)
--- NOTE | 2018-11-21 06:19 | NUR ---
Shift Nurse The patient had an uneventful night, tolerated treatments well, had no complaints. Changed the patient's dressing during the shift, it continues to produce purulent drainage with black/necrotic tissue. Removed the old dressing using saline to ensure the dressing didn't stick to the wound. Cleaned the wound with Daikin's solution and then painted the wound with iodine. Dressed the wound with 4x4 gauze and kerlix. The patient tolerated it well, denied pain throughout. He was able to sleep most of the shift, only woke for medications. Will continue to monitor.
[2018-11-21 06:26] LABS: Calcium 8.8 mg/dL (8.5-10.1); Potassium 4.4 mmol/L (3.5-5.1)
[2018-11-21 06:29] LABS: BUN/Creatinine Ratio 20.4
[2018-11-21 09:00] VITALS: BP 142/80
[2018-11-21] MEDS: POVIDONE IODINE 10 % TOPICAL OINT 30GM TOP SCH ×2 (10:04→21:57)
[2018-11-21] MEDS: DAKINS HALF STR 0.25% (NaHypochlorite) 473 ML TOPICAL SOL TOP SCH ×2 (10:04→21:57)
[2018-11-21] MEDS: LEVOFLOXACIN 750MG 150 ML IV SCH (10:06)
[2018-11-21] MEDS: MULTIPLE VITAMINS W/ MINERALS TAB PO SCH ×2 (10:06→21:55)
[2018-11-21] MEDS: PANTOPRAZOLE 40 MG TAB PO SCH (10:06)
[2018-11-21] MEDS: ASCORBIC ACID 500 MG TAB PO SCH ×2 (10:06→21:55)
[2018-11-21] MEDS: traMADol HCL 50 MG TAB PO PRN (11:04)
[2018-11-21 12:58] VITALS: BP 120/71
[2018-11-21] MEDS ORDERED: DEXTROSE (50%) 50ML SYRG IV PRN (13:15)
[2018-11-21 17:00] VITALS: BP 118/70
--- NOTE | 2018-11-21 19:50 | NUR ---
Opening Shift Note Assumed care of patient, awake and alert. No S/S of distress/SOB or pain. Instructed on POC and to call for assist PRN. Bed in lowest locked position, call light within reach, side rails up x2. Will continue to monitor for changes Q1hr and PRN.
[2018-11-21] MEDS: INSULIN LANTUS (GLARGINE) 1 /0.01ml (100units/ml) SC SCH (21:56)
[2018-11-21 22:00] VITALS: BP 151/85
[2018-11-22 05:00] VITALS: BP 113/67
--- NOTE | 2018-11-22 05:20 | NUR ---
Called lab in regards to patient's pending vanco trough to be drawn for scheduled vanco at 0500. There was no answer, will try again in a few minutes.
--- NOTE | 2018-11-22 05:40 | NUR ---
Called lab Informed laborer [employer] of pending vanco trough draw at 0400 for scheduled vanco at 0500. Stated that the crane hoist or lift operator should be in soon and will make them aware of pending lab draw.
[2018-11-22] MEDS: InsuLIN REG 1unit/0.01ml Soln (100units/ml) SC SCH ×4 (06:51→22:44)
[2018-11-22] MEDS: VANCOMYCIN 1,250 MG in D5W 5% 250 ML IV SCH ×2 (06:51→17:23)
[2018-11-22] MEDS: ACCU-CHEK COMFORT CURVE STRIP VI SCH ×4 (06:51→22:43)
--- NOTE | 2018-11-22 07:20 | NUR ---
OPENING SHIFT ASSUMED CARE OF PATIENT FROM MARKETING MANAGER RN KELLY. PATIENT IS AWAKE AND ALERT X4. PATIENT HAS NO S/S OF DISTRESS/SOB OR PAIN. INSTRUCTED PATIENT ON POC, PATIENT VERBALIZED UNDERSTANDING. BED IS IN LOWEST POSITION WITH SIDE RAILS RAISED X2, BED WHEELS LOCKED, AND CALL LIGHT WITHIN REACH. WILL CONTINUE TO MONITOR.
[2018-11-22 08:15] VITALS: BP 129/74
[2018-11-22 09:00] VITALS: BP 129/74
[2018-11-22] MEDS: POVIDONE IODINE 10 % TOPICAL OINT 30GM TOP SCH ×2 (10:00→22:43)
[2018-11-22] MEDS: DAKINS HALF STR 0.25% (NaHypochlorite) 473 ML TOPICAL SOL TOP SCH ×2 (10:00→22:43)
[2018-11-22] MEDS: MULTIPLE VITAMINS W/ MINERALS TAB PO SCH ×2 (10:13→22:43)
[2018-11-22] MEDS: ASCORBIC ACID 500 MG TAB PO SCH ×2 (10:13→22:43)
[2018-11-22] MEDS: LEVOFLOXACIN 750MG 150 ML IV SCH (10:13)
[2018-11-22] MEDS: PANTOPRAZOLE 40 MG TAB PO SCH (10:13)
[2018-11-22 12:32] VITALS: BP 120/79
--- NOTE | 2018-11-22 17:09 | NUR ---
CALLED PHARMACY REGARDING VANCOMYCIN. INFORMED PHARMACIST VANCOMYCIN HAS NOT BEEN SENT UP. PER PHARMACIST THEY WILL SEND IT UP IN 5 MINS VIA BULLET.
[2018-11-22 17:44] VITALS: BP 125/83
--- NOTE | 2018-11-22 19:20 | NUR ---
Opening Shift Note Assumed care of patient, awake and alert. No S/S of distress/SOB. Instructed on POC and to call for assist PRN. Bed in lowest locked position, call light within reach, side rails up x2. Will continue to monitor for changes Q1hr and PRN.
--- NOTE | 2018-11-22 19:20 | NUR ---
CLOSING SHIFT NOTE ENDORSED CARE TO HEALTH OCCUPATIONS TEACHER RN KELLY. PATIENT HAS NO S/S OF DISTRESS/SOB OR PAIN AT THIS TIME.
[2018-11-22] MEDS: traMADol HCL 50 MG TAB PO PRN (19:36)
[2018-11-22 22:00] VITALS: BP 126/73
[2018-11-22] MEDS: INSULIN LANTUS (GLARGINE) 1 /0.01ml (100units/ml) SC SCH (22:43)
--- NOTE | 2018-11-23 04:30 | NUR ---
Chg wipes and linen change done at this time.
[2018-11-23] MEDS: VANCOMYCIN 1,250 MG in D5W 5% 250 ML IV SCH ×2 (04:53→16:55)
[2018-11-23 05:09] VITALS: BP 129/80
[2018-11-23 05:27] LABS: Urine Bacteria FEW /hpf (None Seen); Urine Blood Negative /uL (Negative); Urine Specific Gravity 1.009 (1.001-1.035); Urine WBC <1 /hpf (0 - 3)
[2018-11-23 06:33] LABS: Basophils # (auto) 0 uL; Basophils % (auto) 0.7 % (0.0-2.0); Eosinophils # (auto) 0.1 uL; Eosinophils % (auto) 3.5 % (0.0-7.0); Hematocrit 32.2 % (41.0-53.0); Hemoglobin 11.2 g/dL (13.5-17.5); Lymphocytes # (auto) 1.4 uL; Lymphocytes % (auto) 34.5 % (10.0-50.0); Mean Corpuscular Hemoglobin 30.3 pg (28.0-32.0); Mean Corpuscular Hgb Conc. 34.7 g/dL (32.0-36.0); Mean Corpuscular Volume 87.3 fL (80.0-100.0); Monocytes # (auto) 0.4 uL; Monocytes % (auto) 9.4 % (0.0-12.0); Neutrophils # (auto) 2.1 uL; Neutrophils % (auto) 51.9 % (37.0-80.0); Nucleated Red Blood Cells % 0.1 %; Platelet Count (auto) 189 10^3/uL (140-450); Red Blood Cells 3.69 10^6/uL (4.5-5.90); Red Cell Distribution Width 13.5 % (11.8-14.3)
[2018-11-23 06:47] LABS: Calcium 8.8 mg/dL (8.5-10.1); INR 1.07 (0.9-1.15); Magnesium 1.9 mg/dL (1.6-2.6); Partial Thromboplastin Time 28.7 sec (23.78-33.04); Potassium 4.5 mmol/L (3.5-5.1); Prothrombin Time 11.4 sec (9.27-12.13)
[2018-11-23] MEDS: ACCU-CHEK COMFORT CURVE STRIP VI SCH ×4 (06:47→21:45)
[2018-11-23] MEDS: InsuLIN REG 1unit/0.01ml Soln (100units/ml) SC SCH ×4 (06:47→22:01)
--- NOTE | 2018-11-23 06:47 | NUR ---
Glucose at 240, insulin held due to patient being NPO for procedure.
[2018-11-23 06:49] LABS: BUN/Creatinine Ratio 19.1
[2018-11-23] MEDS ORDERED: BACITRACIN INJ 50000 UNIT VIAL ONE (06:55)
--- NOTE | 2018-11-23 06:55 | NUR ---
Patient transported down to OR for procedure, on bed. Patient tolerated well.
[2018-11-23] MEDS ORDERED: LIDOCAINE 1% HCL (LOCAL ANESTH.) INJ 20ML MDV ONE (08:33)
[2018-11-23] MEDS ORDERED: BUPIVACAINE HCL 50 ML ONE (08:33)
[2018-11-23] MEDS ORDERED: BUPIVACAINE 0.25% INJ 50ML VIAL ONE (08:34)
[2018-11-23] MEDS ORDERED: LIDOCAINE 1% INJ PF 5ML AMP ONE (08:55)
[2018-11-23] MEDS ORDERED: SUCCINYLCHOLINE CHLORIDE 20 MG/ML 10ML VIAL IV ONE (08:56)
[2018-11-23] MEDS ORDERED: MIDAZOLAM HCL 1MG/1ML-2 ML VIAL ONE (08:59)
[2018-11-23] MEDS ORDERED: diphenhdrAMINE HCL 50 MG/1 ML VL ONE (09:00)
[2018-11-23] MEDS ORDERED: GLYCOPYRROLATE 0.2 MG/ML 1ML VIAL ONE (09:00)
[2018-11-23] MEDS ORDERED: METOCLOPRAMIDE HCL 5MG/ml INJ 2ml VIAL ONE (09:00)
[2018-11-23] MEDS ORDERED: PROPOFOL 10 MG/ML 20 ML IV ONE (09:04)
[2018-11-23] MEDS ORDERED: HYDROmorphone HCL 2 MG/ML VL IV PRN (09:15)
[2018-11-23] MEDS ORDERED: NALOXONE HCL 0.4 MG/ML VIAL IV PRN (09:15)
[2018-11-23] MEDS ORDERED: ACCU-CHEK COMFORT CURVE STRIP VI ONE (09:15)
[2018-11-23] MEDS ORDERED: ONDANSETRON HCL 4 MG/2 ML VIAL IV ONE (09:15)
[2018-11-23] MEDS: DAKINS HALF STR 0.25% (NaHypochlorite) 473 ML TOPICAL SOL TOP SCH ×2 (10:00→22:00)
[2018-11-23] MEDS: POVIDONE IODINE 10 % TOPICAL OINT 30GM TOP SCH ×2 (10:00→22:00)
--- NOTE | 2018-11-23 10:45 | NUR ---
Patient came back to the floor, dressing with wound vac to the left foot.Two post op shoes size L and XL at bedside.
--- NOTE | 2018-11-23 10:46 | NUR ---
WOUND CARE NOTE: Wound care in to see patient to check wound vac applied in O.R. Patient just arrived from O.R. He's s/p Left Foot Hallux amputation, L foot Excisional Debridement and application of Wound Vac today by Dr. Olivarez. Patient is resting in bed in Rm. 240B. Patient is awake, able to verbalize needs. He's self turn and reposition and his current Martínez score of 21. Patient's L foot wound has intact wound vac vac dressing with Kerlix outer dressing. Info vac running well at 125 mmHg continuos per MD order. Good seal noted, no leak detected. Minimal serosanguineous drainage noted in tubing. Reviewed with KARTHIK Mckeon Info vac trouble shouting and monitoring for bleeding. Patient and family education provided regarding NPWT, verbalized understanding. No other wound noted. Patient is on IV antibiotic: Vancomycin and Levaquin. He's also on special Diet and Multi Vitamins. Will fill up paper works for Home Wound Vac. RECOMMENDATION: Q3Days/PRN dressing change to L foot wound per Dr. Olivarez's order, continuation of other wound care orders prescribed by MD, continue with skin/wound plan of care, continue monitoring by wound care while patient is hospitalized. Addendum: 11/23/18 at 1649 by Keren Hernandez RN Amended: Links added. Addendum: 11/23/18 at 1746 by Keren Hernandez RN Home Wound Vacc request form filled up and placed in patient's chart. Unable to contact nurse Mckeon. Left message to Lathe TurnerTobias
--- NOTE | 2018-11-23 11:00 | NUR ---
Wound nurse at bedside set up wound vac.
[2018-11-23] MEDS: LEVOFLOXACIN 750MG 150 ML IV SCH (11:05)
[2018-11-23] MEDS: ASCORBIC ACID 500 MG TAB PO SCH ×2 (11:05→22:00)
[2018-11-23] MEDS: PANTOPRAZOLE 40 MG TAB PO SCH (11:06)
[2018-11-23] MEDS: MULTIPLE VITAMINS W/ MINERALS TAB PO SCH ×2 (11:06→22:00)
--- NOTE | 2018-11-23 11:40 | NUR ---
Received an order from Dr. Olivarez to place consult to transfer to [facility] for Rehab.
--- NOTE | 2018-11-23 11:47 | NUR ---
Received a call from DIANA (ISAURA) stated that patient is willing to go home.
--- NOTE | 2018-11-23 11:49 | NUR ---
Per DIANA (SS) patient will go home with HH because his insurance does not cover for SNF.
[2018-11-23 12:00] VITALS: BP 132/79
[2018-11-23] MEDS ORDERED: MAGNESIUM SULFATE 1GM/100ML 100 ML IV ONE (13:15)
[2018-11-23] MEDS: SODIUM CHLORIDE 0.9% 1,000 ML IV SCH (14:34)
--- NOTE | 2018-11-23 14:59 | NUR ---
PICC Line Dressing Changes PICC line dressing change done with a sterile technique. Cleansed with chloraprep scrub/betadine. Stat lock, and bio-patch as available. Occlusive dressing applied. Changed claves weekly and post lab draw. See e-MAR for medications given during this visit.
[2018-11-23] MEDS: traMADol HCL 50 MG TAB PO PRN ×2 (15:38→22:01)
[2018-11-23 16:00] VITALS: BP 115/68
[2018-11-23 20:00] VITALS: BP 109/61
[2018-11-23 22:00] VITALS: BP 109/61
[2018-11-23] MEDS: INSULIN LANTUS (GLARGINE) 1 /0.01ml (100units/ml) SC SCH (22:00)
[2018-11-24] MEDS: VANCOMYCIN 1,250 MG in D5W 5% 250 ML IV SCH ×2 (04:18→17:34)
[2018-11-24] MEDS: SODIUM CHLORIDE 0.9% 1,000 ML IV SCH (04:18)
[2018-11-24 05:34] VITALS: BP 115/67
[2018-11-24] MEDS: InsuLIN REG 1unit/0.01ml Soln (100units/ml) SC SCH ×3 (06:15→17:35)
[2018-11-24] MEDS: ACCU-CHEK COMFORT CURVE STRIP VI SCH ×3 (06:16→17:35)
[2018-11-24 07:10] LABS: Basophils # (auto) 0 uL; Basophils % (auto) 0.4 % (0.0-2.0); Eosinophils # (auto) 0.1 uL; Eosinophils % (auto) 2.3 % (0.0-7.0); Hematocrit 33.8 % (41.0-53.0); Hemoglobin 11.4 g/dL (13.5-17.5); Lymphocytes # (auto) 1.6 uL; Lymphocytes % (auto) 29.3 % (10.0-50.0); Mean Corpuscular Hemoglobin 29.9 pg (28.0-32.0); Mean Corpuscular Hgb Conc. 33.9 g/dL (32.0-36.0); Mean Corpuscular Volume 88.2 fL (80.0-100.0); Monocytes # (auto) 0.5 uL; Monocytes % (auto) 9.2 % (0.0-12.0); Neutrophils # (auto) 3.3 uL; Neutrophils % (auto) 58.8 % (37.0-80.0); Platelet Count (auto) 197 10^3/uL (140-450); Red Blood Cells 3.83 10^6/uL (4.5-5.90); Red Cell Distribution Width 13.4 % (11.8-14.3); White Blood Cell 5.6 10^3/uL (4.4-10.8)
[2018-11-24 07:22] LABS: Magnesium 2.1 mg/dL (1.6-2.6); Potassium 4.8 mmol/L (3.5-5.1)
[2018-11-24 07:25] LABS: BUN/Creatinine Ratio 22.1
[2018-11-24 09:00] VITALS: BP 108/72
[2018-11-24] MEDS: ASCORBIC ACID 500 MG TAB PO SCH (09:21)
[2018-11-24] MEDS: MULTIPLE VITAMINS W/ MINERALS TAB PO SCH (09:21)
[2018-11-24] MEDS: LEVOFLOXACIN 750MG 150 ML IV SCH (09:21)
[2018-11-24] MEDS: PANTOPRAZOLE 40 MG TAB PO SCH (09:21)
[2018-11-24] MEDS: POVIDONE IODINE 10 % TOPICAL OINT 30GM TOP SCH (09:21)
[2018-11-24] MEDS: DAKINS HALF STR 0.25% (NaHypochlorite) 473 ML TOPICAL SOL TOP SCH (09:22)
--- NOTE | 2018-11-24 09:30 | NUR ---
Opening Shift Note Assumed care of patient, awake and alert. No S/S of distress/SOB or pain. Skin is warm and dry to touch, no s/s of hyperglycemia or hypoglycemia noted. Wound VAC to the left foot, working properly. Instructed on POC and to call for assist PRN, will continue to monitor for changes Q1hr and PRN.
[2018-11-24] MEDS: traMADol HCL 50 MG TAB PO PRN (11:19)
--- NOTE | 2018-11-24 11:42 | NUR ---
Dr. Gamez at bedside discussed with patient regarding patient can go home today with HH and ATB, patient verbalized understanding.
--- NOTE | 2018-11-24 11:50 | NUR ---
Spoke to Dr. Vargas regarding patient has d/c wound vac order by dr. Gamez. Per Dr. Olivarez said it is ok and patient needs to go home with HH and HH nurse can call office to get an instruction.
--- NOTE | 2018-11-24 12:00 | NUR ---
Called Dr. Olivarez and Dr. Richadrson ' s office regarding make follow appointment for the patient. However, Office is far away from [facility], patient refused to go. Dr. Gamez made aware of it.
--- NOTE | 2018-11-24 12:10 | NUR ---
Dr. Gamez spoke with Dr. Alexandre regarding patient is unable to see him because Dr. romano is far. Dr. Alexandre will take care of it.
[2018-11-24 13:00] VITALS: BP 126/85
--- NOTE | 2018-11-24 13:00 | NUR ---
Zoila (SS ) stated [facility] to [facility]. Per ZOILA , patient already has D/C order to go home, we are unable to provide. Will notify patient.
--- NOTE | 2018-11-24 13:23 | NUR ---
Left a massage to Irina regarding patient wants to get other podiatries.
--- NOTE | 2018-11-24 14:45 | NUR ---
WOUND CARE NOTE: Received T/C from bedside RNMike. Patient is discharged and will not be going home with wound vacc in place. Per KARTHIK Mckeon, Dr Olivarez is aware and no orders given for dressing changes. Patient will be going home with home health and on IV antibiotics. Patient seen and wound vacc dressing removed. Wound photographed for reference. Wound cleansed with NS, patted dry, apply Vaseline gauze, foam dressing and secured with kerlex wrap. Patient tolerated well, no complaints of pain.
--- NOTE | 2018-11-24 15:49 | NUR ---
Jolanta in [facility] notified of " desire to see this pt in a SNF setting for iv abx and wd care. Jolanta stated pt was getting abx and wd care at home and cont to do so. Pt initially decided on abx therapy and to hold off on this surgery on previous admission. and [facility] have been giving abx and wd care. Informed of above.
--- NOTE | 2018-11-24 16:00 | NUR ---
PAGED DR GALLEGOS TO PUT IN HOME ABX ORDER FOR DURATION FOR ABX, (4WKS, 6WKS?) AWAITING ORDER
--- NOTE | 2018-11-24 16:19 | NUR ---
CORRECTION : INFUSION COMPANY IS [facility] AND NOT [facility]. NEW IV ORDER FAXED TO [facility]. PH [phone], [facility] INSURANCE CASE MANAGER CM FOR F/U
--- NOTE | 2018-11-24 16:36 | NUR ---
PT CAN GO HOME AND O/C CM KURT [place] F/UJani RAGLAND IN MANAGED CARE CALLED TO GIVE AUTH TO [facility]
[2018-11-24 17:00] VITALS: BP 134/73
--- NOTE | 2018-11-24 17:05 | NUR ---
Contact ([facility]) [phone] ETA BETWEEN P and 11p.RN informed.
--- NOTE | 2018-11-24 17:15 | NUR ---
Received a call from December (manager technical support) stated patient can go home now and [facility] will be his house around 10-11 PM tonight for IV ATB. Patient notified.
--- NOTE | 2018-11-24 17:28 | NUR ---
Received a call from Dariana ([facility]) stated patient will get IV ATB tomorrow.
[2018-11-24 17:41] VITALS: BP 134/73
--- NOTE | 2018-11-24 18:00 | NUR ---
Patient made aware of getting IV ATB tomorrow.
--- NOTE | 2018-11-24 19:00 | NUR ---
Hospitalist paged regarding patient wants to have tramadol, awaiting to call back and endorse to night nurse.
--- NOTE | 2018-11-24 20:45 | NUR ---
patient discharged home with picc line for home health nurse antibiotics. signed all papers and has all possessions.
== END 2018-11-24 20:45 | disposition home health service (06) | DRG 255 ==
LOC: TELE-EAST 15:32 → EAST 18:53 → UNDODISIN 11-19 12:00
PROVIDERS: ADMIT Internal Medicine; ATTEND Internal Medicine
PROC: 02HV33Z Insertion of Infusion Device into Superior Vena Cava, Percutaneous Approach (ICD-10-PCS; 2018-11-17)
PROC: 0LBW0ZZ Excision of Left Foot Tendon, Open Approach (ICD-10-PCS; 2018-11-23)
PROC: 0Y6Q0Z0 Detachment at Left 1st Toe, Complete, Open Approach (ICD-10-PCS; principal; 2018-11-23 08:55)
DX: E11.52 Type 2 diabetes mellitus with diabetic peripheral angiopathy with gangrene (principal); N17.0 Acute kidney failure with tubular necrosis; L03.90 Cellulitis, unspecified; M86.172 Other acute osteomyelitis, left ankle and foot; L97.529 Non-pressure chronic ulcer of other part of left foot with unspecified severity; B96.20 Unspecified Escherichia coli [E. coli] as the cause of diseases classified elsewhere; Z16.12 Extended spectrum beta lactamase (ESBL) resistance; B95.61 Methicillin susceptible Staphylococcus aureus infection as the cause of diseases classified elsewhere; E11.69 Type 2 diabetes mellitus with other specified complication; E78.5 Hyperlipidemia, unspecified; I10 Essential (primary) hypertension; Z86.73 Personal history of transient ischemic attack (TIA), and cerebral infarction without residual deficits; I25.2 Old myocardial infarction; Z79.4 Long term (current) use of insulin; Z79.82 Long term (current) use of aspirin; Z80.0 Family history of malignant neoplasm of digestive organs; Z80.1 Family history of malignant neoplasm of trachea, bronchus and lung; Z80.3 Family history of malignant neoplasm of breast; Z80.42 Family history of malignant neoplasm of prostate; Z80.8 Family history of malignant neoplasm of other organs or systems; Z81.8 Family history of other mental and behavioral disorders; Z82.0 Family history of epilepsy and other diseases of the nervous system; Z82.3 Family history of stroke; Z82.49 Family history of ischemic heart disease and other diseases of the circulatory system; Z82.5 Family history of asthma and other chronic lower respiratory diseases; Z82.62 Family history of osteoporosis; Z83.3 Family history of diabetes mellitus; Z89.422 Acquired absence of other left toe(s); Z82.61 Family history of arthritis; Z84.89 Family history of other specified conditions; Z83.2 Family history of diseases of the blood and blood-forming organs and certain disorders involving the immune mechanism; Z83.511 Family history of glaucoma; Z83.42 Family history of familial hypercholesterolemia; Z83.49 Family history of other endocrine, nutritional and metabolic diseases; Z84.1 Family history of disorders of kidney and ureter
CPT/HCPCS: 36415; 71045; 73620; 73718; 80048; 80202; 81001; 82962; 83735; 85025; 85610; 85730; 86850; 86900; 86901; 87070; 87075; 87077; 87081; 87186; 87205; 97163; G0378; J0330; J1815; J1956; J2001; J2250; J2704; J3490; J7060

== ENCOUNTER → 2018-12-01 | Outpatient (CLI) | payer OTHER ==
[~2018-12-01] MED LIST changes: +INSLANTI SC; +LEVO750T2 IV
[2018-12-01 16:24] LABS: Basophils # (auto) 0 uL; Basophils % (auto) 0.8 % (0.0-2.0); Eosinophils # (auto) 0.2 uL; Eosinophils % (auto) 5.1 % (0.0-7.0); Hematocrit 31.9 % (41.0-53.0); Hemoglobin 10.9 g/dL (13.5-17.5); Lymphocytes # (auto) 1.5 uL; Lymphocytes % (auto) 33.7 % (10.0-50.0); Mean Corpuscular Hemoglobin 29.9 pg (28.0-32.0); Mean Corpuscular Hgb Conc. 34.3 g/dL (32.0-36.0); Monocytes # (auto) 0.3 uL; Monocytes % (auto) 6.6 % (0.0-12.0); Neutrophils # (auto) 2.4 uL; Neutrophils % (auto) 53.8 % (37.0-80.0); Nucleated Red Blood Cells % 0.2 %; Platelet Count (auto) 188 10^3/uL (140-450); Red Blood Cells 3.66 10^6/uL (4.5-5.90); Red Cell Distribution Width 13.8 % (11.8-14.3); White Blood Cell 4.4 10^3/uL (4.4-10.8)
[2018-12-01 16:27] LABS: BUN/Creatinine Ratio 27.8; Calcium 8.5 mg/dL (8.5-10.1); Potassium 4.4 mmol/L (3.5-5.1)
== END | disposition home or self-care (01) ==
LOC: LAB 16:01
PROVIDERS: ATTEND Internal Medicine
DX: E11.621 Type 2 diabetes mellitus with foot ulcer (principal)
CPT/HCPCS: 36415; 80048; 80202; 85025

== ENCOUNTER → 2018-12-08 | Outpatient (CLI) | payer OTHER ==
[2018-12-08 13:24] LABS: Basophils # (auto) 0 uL; Basophils % (auto) 0.9 % (0.0-2.0); Eosinophils # (auto) 0.3 uL; Eosinophils % (auto) 7.5 % (0.0-7.0); Hematocrit 33.7 % (41.0-53.0); Hemoglobin 11.5 g/dL (13.5-17.5); Lymphocytes # (auto) 1.7 uL; Lymphocytes % (auto) 41.9 % (10.0-50.0); Mean Corpuscular Hemoglobin 29.6 pg (28.0-32.0); Mean Corpuscular Hgb Conc. 34.1 g/dL (32.0-36.0); Mean Corpuscular Volume 86.9 fL (80.0-100.0); Monocytes # (auto) 0.3 uL; Neutrophils # (auto) 1.7 uL; Neutrophils % (auto) 41.7 % (37.0-80.0); Nucleated Red Blood Cells % 0.1 %; Platelet Count (auto) 193 10^3/uL (140-450); Red Blood Cells 3.88 10^6/uL (4.5-5.90); Red Cell Distribution Width 13.9 % (11.8-14.3); White Blood Cell 4.1 10^3/uL (4.4-10.8)
[2018-12-08 13:41] LABS: BUN/Creatinine Ratio 24.2; Calcium 8.6 mg/dL (8.5-10.1)
== END | disposition home or self-care (01) ==
LOC: LAB 13:12
PROVIDERS: ATTEND Internal Medicine
DX: E11.621 Type 2 diabetes mellitus with foot ulcer (principal)
CPT/HCPCS: 36415; 80048; 80202; 85025

== ENCOUNTER → 2018-12-14 | Outpatient (CLI) | payer OTHER ==
[2018-12-14 11:37] LABS: Cholesterol 119 mg/dL (< 200)
[2018-12-14 11:39] LABS: HDL Cholesterol 47 mg/dL (40-59); LDL Cholesterol 67 mg/dL (< 100); Triglycerides 69 mg/dL (< 150)
== END | disposition home or self-care (01) ==
LOC: LAB 10:30
PROVIDERS: ATTEND Internal Medicine
DX: Z12.11 Encounter for screening for malignant neoplasm of colon (principal); E11.9 Type 2 diabetes mellitus without complications; E78.5 Hyperlipidemia, unspecified
CPT/HCPCS: 36415; 80061; 82043; 84153

== ENCOUNTER → 2018-12-15 | Outpatient (CLI) | payer OTHER ==
[2018-12-15 13:14] LABS: Basophils # (auto) 0.1 uL; Basophils % (auto) 1.5 % (0.0-2.0); Eosinophils # (auto) 0.4 uL; Eosinophils % (auto) 9.3 % (0.0-7.0); Hematocrit 32.4 % (41.0-53.0); Hemoglobin 11.4 g/dL (13.5-17.5); Lymphocytes # (auto) 1.5 uL; Lymphocytes % (auto) 32.7 % (10.0-50.0); Mean Corpuscular Hemoglobin 30.6 pg (28.0-32.0); Mean Corpuscular Hgb Conc. 35.1 g/dL (32.0-36.0); Mean Corpuscular Volume 87.2 fL (80.0-100.0); Monocytes # (auto) 0.3 uL; Monocytes % (auto) 6.9 % (0.0-12.0); Neutrophils # (auto) 2.2 uL; Neutrophils % (auto) 49.6 % (37.0-80.0); Platelet Count (auto) 181 10^3/uL (140-450); Red Blood Cells 3.71 10^6/uL (4.5-5.90); Red Cell Distribution Width 14.1 % (11.8-14.3); White Blood Cell 4.5 10^3/uL (4.4-10.8)
[2018-12-15 13:33] LABS: Calcium 9.1 mg/dL (8.5-10.1)
[2018-12-15 13:36] LABS: BUN/Creatinine Ratio 23.1
== END | disposition home or self-care (01) ==
LOC: LAB 12:58
PROVIDERS: ATTEND Internal Medicine
DX: Z12.11 Encounter for screening for malignant neoplasm of colon (principal); E11.9 Type 2 diabetes mellitus without complications; E78.5 Hyperlipidemia, unspecified
CPT/HCPCS: 36415; 80048; 80202; 85025

== ENCOUNTER → 2018-12-23 | Outpatient (CLI) | payer OTHER ==
[2018-12-23 13:17] LABS: Basophils # (auto) 0.1 uL; Basophils % (auto) 1.6 % (0.0-2.0); Eosinophils # (auto) 0.5 uL; Eosinophils % (auto) 12.6 % (0.0-7.0); Hematocrit 33.4 % (41.0-53.0); Hemoglobin 11.2 g/dL (13.5-17.5); Lymphocytes # (auto) 1.4 uL; Lymphocytes % (auto) 34.9 % (10.0-50.0); Mean Corpuscular Hemoglobin 29.5 pg (28.0-32.0); Mean Corpuscular Hgb Conc. 33.7 g/dL (32.0-36.0); Mean Corpuscular Volume 87.6 fL (80.0-100.0); Monocytes # (auto) 0.3 uL; Monocytes % (auto) 8.1 % (0.0-12.0); Neutrophils # (auto) 1.7 uL; Neutrophils % (auto) 42.8 % (37.0-80.0); Nucleated Red Blood Cells % 0.3 %; Platelet Count (auto) 182 10^3/uL (140-450); Red Blood Cells 3.81 10^6/uL (4.5-5.90); Red Cell Distribution Width 14.4 % (11.8-14.3); White Blood Cell 3.9 10^3/uL (4.4-10.8)
[2018-12-23 13:39] LABS: Albumin 3.8 g/dL (3.4-5.0); Calcium 8.7 mg/dL (8.5-10.1); Potassium 3.8 mmol/L (3.5-5.1)
[2018-12-23 13:41] LABS: Bilirubin, Total 0.4 mg/dL (0.2-1.0); Total Protein 6.6 g/dL (6.4-8.2)
== END | disposition home or self-care (01) ==
LOC: LAB 13:05
PROVIDERS: ATTEND Internal Medicine
DX: M86.172 Other acute osteomyelitis, left ankle and foot (principal); I10 Essential (primary) hypertension; E11.9 Type 2 diabetes mellitus without complications; E78.5 Hyperlipidemia, unspecified; Z89.422 Acquired absence of other left toe(s)
CPT/HCPCS: 36415; 80053; 80202; 85025

== ENCOUNTER → 2019-01-20 | Outpatient (CLI) | payer OTHER | END | disposition home or self-care (01) | LOC: LAB 11:28 | PROVIDERS: ATTEND Internal Medicine | DX: E11.9 Type 2 diabetes mellitus without complications (principal) | CPT/HCPCS: 36415; 82270; 83036 ==

== ENCOUNTER → 2019-03-04 | Outpatient (CLI) | payer OTHER | END | disposition home or self-care (01) | LOC: US 10:10 | PROVIDERS: ATTEND Internal Medicine | DX: L03.115 Cellulitis of right lower limb (principal); I70.203 Unspecified atherosclerosis of native arteries of extremities, bilateral legs; E11.9 Type 2 diabetes mellitus without complications | CPT/HCPCS: 93925 ==

== ENCOUNTER 2019-03-10 09:52 | Inpatient (IN) | payer OTHER | END 2019-03-12 14:50 | disposition home or self-care (01) | LOC: ER 09:52 → OVERFLOW 09:53 → WEST WING 13:44 | PROC: B41G1ZZ Fluoroscopy of Left Lower Extremity Arteries using Low Osmolar Contrast (ICD-10-PCS; principal; ~2019-03-10) | PROC: 04CT3ZZ Extirpation of Matter from Right Peroneal Artery, Percutaneous Approach (ICD-10-PCS; ~2019-03-10) | PROC: 047P3ZZ Dilation of Right Anterior Tibial Artery, Percutaneous Approach (ICD-10-PCS; ~2019-03-10) | PROC: 04CP3ZZ Extirpation of Matter from Right Anterior Tibial Artery, Percutaneous Approach (ICD-10-PCS; ~2019-03-10) | PROC: B41F1ZZ Fluoroscopy of Right Lower Extremity Arteries using Low Osmolar Contrast (ICD-10-PCS; ~2019-03-10) | DX: E11.51 Type 2 diabetes mellitus with diabetic peripheral angiopathy without gangrene (principal); E11.621 Type 2 diabetes mellitus with foot ulcer; E11.610 Type 2 diabetes mellitus with diabetic neuropathic arthropathy; L97.519 Non-pressure chronic ulcer of other part of right foot with unspecified severity; I10 Essential (primary) hypertension; E78.5 Hyperlipidemia, unspecified ==

== ENCOUNTER → 2019-04-14 | Outpatient (CLI) | payer OTHER ==
[~2019-04-14] MED LIST changes: +METF-370 PO; +PHE100C PO; +SIMV-13 PO
[2019-04-14 12:14] LABS: Basophils # (auto) 0 uL; Basophils % (auto) 0.9 % (0.0-2.0); Eosinophils # (auto) 0.1 uL; Eosinophils % (auto) 2.8 % (0.0-7.0); Hematocrit 36.3 % (41.0-53.0); Hemoglobin 12.5 g/dL (13.5-17.5); Lymphocytes # (auto) 1.6 uL; Lymphocytes % (auto) 37.7 % (10.0-50.0); Mean Corpuscular Hemoglobin 30.7 pg (28.0-32.0); Mean Corpuscular Hgb Conc. 34.6 g/dL (32.0-36.0); Mean Corpuscular Volume 88.8 fL (80.0-100.0); Monocytes # (auto) 0.4 uL; Monocytes % (auto) 9.4 % (0.0-12.0); Neutrophils # (auto) 2.1 uL; Neutrophils % (auto) 49.2 % (37.0-80.0); Platelet Count (auto) 187 10^3/uL (140-450); Red Blood Cells 4.09 10^6/uL (4.5-5.90); Red Cell Distribution Width 13.9 % (11.8-14.3); White Blood Cell 4.3 10^3/uL (4.4-10.8)
[2019-04-14 12:23] LABS: INR 1.06 (0.9-1.15); Partial Thromboplastin Time 26.1 sec (23.64-32.05)
[2019-04-14 13:09] LABS: Albumin 3.8 g/dL (3.4-5.0); BUN/Creatinine Ratio 14.5; Bilirubin, Direct 0.2 mg/dL (0-0.2); Calcium 8.5 mg/dL (8.5-10.1); Potassium 4.4 mmol/L (3.5-5.1)
[2019-04-14 13:11] LABS: Bilirubin, Total 0.4 mg/dL (0.2-1.0); Total Protein 7.2 g/dL (6.4-8.2)
== END | disposition home or self-care (01) ==
LOC: LAB 11:39
PROVIDERS: ATTEND Internal Medicine
DX: E11.9 Type 2 diabetes mellitus without complications (principal)
CPT/HCPCS: 36415; 80053; 82248; 83036; 85025; 85610; 85730

== ENCOUNTER 2019-04-30 22:50 | Inpatient (IN) | payer OTHER ==
[~2019-04-30] VITALS: Ht 185.4 cm; Wt 88.0 kg
[~2019-04-30 22:50] MED LIST changes: -CYCL1TAB18 PO; -DAKI0.12 TOP; +INSU100I24 SC; -INSUINJ47 IJ; -LEVO750T2 IV; -METF-372 PO
[2019-05-01 00:03] LABS: Urine WBC None Seen /hpf (0 - 3)
[2019-05-01 00:15] LABS: Urine Bacteria NONE SEEN /hpf (None Seen); Urine Blood Negative /uL (Negative); Urine Hyaline Cast MANY /lpf (0 - 2); Urine Mucus FEW (None Seen); Urine Specific Gravity 1.023 (1.001-1.035)
[2019-05-01 00:21] LABS: Basophils # (auto) 0 uL; Basophils % (auto) 0.7 % (0.0-2.0); Eosinophils # (auto) 0.1 uL; Eosinophils % (auto) 1.4 % (0.0-7.0); Hematocrit 34.4 % (41.0-53.0); Hemoglobin 11.7 g/dL (13.5-17.5); Lymphocytes # (auto) 1.5 uL; Lymphocytes % (auto) 28.7 % (10.0-50.0); Mean Corpuscular Hemoglobin 30.5 pg (28.0-32.0); Mean Corpuscular Hgb Conc. 34.1 g/dL (32.0-36.0); Mean Corpuscular Volume 89.5 fL (80.0-100.0); Monocytes # (auto) 0.4 uL; Monocytes % (auto) 7.8 % (0.0-12.0); Neutrophils # (auto) 3.1 uL; Neutrophils % (auto) 61.4 % (37.0-80.0); Platelet Count (auto) 206 10^3/uL (140-450); Red Blood Cells 3.85 10^6/uL (4.5-5.90); Red Cell Distribution Width 13.9 % (11.8-14.3); White Blood Cell 5.1 10^3/uL (4.4-10.8)
[2019-05-01 00:37] LABS: Alanine Aminotransferase 32 U/L (16-61); Albumin 4.1 g/dL (3.4-5.0); Anion Gap 11 (5-15); Aspartate Aminotransferase 17 U/L (15-37); BUN/Creatinine Ratio 20.2; Blood Urea Nitrogen 38 mg/dL (7-18); Calcium 8.6 mg/dL (8.5-10.1); Carbon Dioxide 25 mmol/L (21-32); Chloride 104 mmol/L (98-107); GFR African American 46 mL/min; GFR Non-African American 38 mL/min; Glucose 274 mg/dL (74-106); Magnesium 1.6 mg/dL (1.6-2.6); Potassium 4.6 mmol/L (3.5-5.1); Sodium 140 mmol/L (136-145)
[2019-05-01 00:42] LABS: Alkaline Phosphatase 123 U/L (45-117); Bilirubin, Total 0.2 mg/dL (0.2-1.0); Total Protein 7.3 g/dL (6.4-8.2)
[2019-05-01] MEDS ORDERED: ASPirin-EC 325mg tab PO ONE (04:00)
[2019-05-01] MEDS ORDERED: ONDANSETRON HCL 4 MG/2 ML VIAL IV PRN (06:30)
[2019-05-01] MEDS ORDERED: TEMAZEPAM 15 MG CAP PO PRN (06:30)
[2019-05-01] MEDS ORDERED: MORPHINE SULF INJ 2 MG/ML SYRINGE 1ML IV PRN (06:30)
[2019-05-01] MEDS ORDERED: DEXTROSE (50%) 50ML SYRG IV ONE ×2 (06:30→09:15)
[2019-05-01] MEDS ORDERED: DOCUSATE SOD 100 MG CAP PO PRN (06:30)
[2019-05-01] MEDS ORDERED: ACETAMINOPHEN 325 MG TAB PO PRN (06:30)
[2019-05-01] MEDS ORDERED: NITROGLYCERIN 0.4 MG SL TAB SL PRN (06:30)
[2019-05-01] MEDS ORDERED: ACCU-CHEK COMFORT CURVE STRIP VI ONE ×2 (07:00→11:30)
[2019-05-01] MEDS ORDERED: InsuLIN REG 1unit/0.01ml Soln (100units/ml) SC ONE ×2 (07:00→11:30)
[2019-05-01] MEDS: ASCORBIC ACID 500 MG TAB PO SCH ×2 (09:24→21:17)
[2019-05-01] MEDS: ZINC SULFATE 220mg CAP or TAB PO SCH (09:24)
[2019-05-01] MEDS: FAMOTIDINE 20 MG TAB PO SCH ×2 (09:24→21:17)
[2019-05-01] MEDS ORDERED: ENOXAPARIN SOD 30 MG/0.3 ML SYRINGE SC SCH (10:00)
[2019-05-01] MEDS: ASPirin-EC 81 mg tab PO SCH (10:08)
[2019-05-01 13:00] VITALS: BP 127/72
[2019-05-01] MEDS: PHENYTOIN SODIUM 100 MG CAP PO SCH ×2 (13:12→21:16)
[2019-05-01] MEDS ORDERED: CLOPIDOGREL BISULFATE 75 MG TAB PO ONE (13:45)
[2019-05-01 17:00] VITALS: BP 122/74
[2019-05-01 22:00] VITALS: BP 123/70
[2019-05-01] MEDS ORDERED: INSULIN LANTUS (GLARGINE) 1 /0.01ml (100units/ml) SC SCH (22:00)
[2019-05-01] MEDS ORDERED: ATORVASTATIN 20 MG TAB PO SCH (22:00)
[2019-05-02 05:00] VITALS: BP 142/85
[2019-05-02] MEDS: PHENYTOIN SODIUM 100 MG CAP PO SCH (05:32)
[2019-05-02 06:08] LABS: Basophils # (auto) 0 uL; Eosinophils # (auto) 0.1 uL; Eosinophils % (auto) 3.2 % (0.0-7.0); Hematocrit 35.2 % (41.0-53.0); Hemoglobin 12.1 g/dL (13.5-17.5); Lymphocytes # (auto) 1.8 uL; Mean Corpuscular Hemoglobin 30.5 pg (28.0-32.0); Mean Corpuscular Hgb Conc. 34.5 g/dL (32.0-36.0); Mean Corpuscular Volume 88.3 fL (80.0-100.0); Monocytes # (auto) 0.3 uL; Monocytes % (auto) 7.4 % (0.0-12.0); Neutrophils # (auto) 1.7 uL; Neutrophils % (auto) 43.4 % (37.0-80.0); Nucleated Red Blood Cells % 0.1 %; Platelet Count (auto) 194 10^3/uL (140-450); Red Blood Cells 3.99 10^6/uL (4.5-5.90); Red Cell Distribution Width 13.8 % (11.8-14.3)
[2019-05-02 06:36] LABS: Albumin 3.7 g/dL (3.4-5.0); Calcium 8.8 mg/dL (8.5-10.1); Potassium 4.2 mmol/L (3.5-5.1)
[2019-05-02 06:38] LABS: BUN/Creatinine Ratio 21.3
[2019-05-02 06:46] LABS: Bilirubin, Total 0.3 mg/dL (0.2-1.0); Total Protein 6.8 g/dL (6.4-8.2)
[2019-05-02 09:00] VITALS: BP 131/78
[2019-05-02] MEDS ORDERED: ENOXAPARIN SOD 40 MG/0.4 ML SYRINGE SC SCH (10:00)
[2019-05-02] MEDS ORDERED: CLOPIDOGREL BISULFATE 75 MG TAB PO SCH (10:00)
[2019-05-02] MEDS: ASCORBIC ACID 500 MG TAB PO SCH (10:10)
[2019-05-02] MEDS: ZINC SULFATE 220mg CAP or TAB PO SCH (10:11)
[2019-05-02] MEDS: ASPirin-EC 81 mg tab PO SCH (10:11)
[2019-05-02] MEDS: FAMOTIDINE 20 MG TAB PO SCH (10:12)
[2019-05-02 12:36] VITALS: BP 148/101
[2019-05-02 13:00] VITALS: BP 148/81
== END 2019-05-02 14:29 | disposition home or self-care (01) | DRG 69 ==
LOC: ER 22:50 → OVERFLOW 22:51 → EAST 05-01 11:29
PROVIDERS: ADMIT Emergency Medicine; ATTEND Emergency Medicine
DX: G45.9 Transient cerebral ischemic attack, unspecified (principal); Q21.1 Atrial septal defect; E78.00 Pure hypercholesterolemia, unspecified; E11.9 Type 2 diabetes mellitus without complications; I25.10 Atherosclerotic heart disease of native coronary artery without angina pectoris; R56.9 Unspecified convulsions; Z80.1 Family history of malignant neoplasm of trachea, bronchus and lung; Z80.3 Family history of malignant neoplasm of breast; Z80.42 Family history of malignant neoplasm of prostate; Z80.8 Family history of malignant neoplasm of other organs or systems; Z81.8 Family history of other mental and behavioral disorders; Z82.0 Family history of epilepsy and other diseases of the nervous system; Z82.3 Family history of stroke; Z82.49 Family history of ischemic heart disease and other diseases of the circulatory system; Z82.5 Family history of asthma and other chronic lower respiratory diseases; Z82.62 Family history of osteoporosis; Z83.3 Family history of diabetes mellitus; Z86.73 Personal history of transient ischemic attack (TIA), and cerebral infarction without residual deficits; Z98.62 Peripheral vascular angioplasty status
CPT/HCPCS: 36415; 70450; 71045; 80053; 81001; 82962; 83036; 83735; 84484; 85025; 87081; 93306; 93886; 96372; G0378; J1815

== ENCOUNTER → 2019-06-01 | Outpatient (CLI) | payer OTHER ==
[2019-06-01 09:47] LABS: BUN/Creatinine Ratio 19.4; Calcium 8.9 mg/dL (8.5-10.1); Potassium 4.1 mmol/L (3.5-5.1)
== END | disposition home or self-care (01) ==
LOC: LAB 08:28
PROVIDERS: ATTEND Internal Medicine
DX: E11.9 Type 2 diabetes mellitus without complications (principal)
CPT/HCPCS: 36415; 80048

== ENCOUNTER 2019-09-18 22:28 | Emergency (ER) | payer OTHER ==
[~2019-09-18] VITALS: Ht 185.4 cm; Wt 88.5 kg
[2019-09-19 01:01] LABS: Basophils # (auto) 0 uL; Basophils % (auto) 0.6 % (0.0-2.0); Eosinophils # (auto) 0.1 uL; Eosinophils % (auto) 2.1 % (0.0-7.0); Lymphocytes # (auto) 2.1 uL; Lymphocytes % (auto) 30.9 % (10.0-50.0); Mean Corpuscular Hemoglobin 30.2 pg (28.0-32.0); Mean Corpuscular Hgb Conc. 34.2 g/dL (32.0-36.0); Mean Corpuscular Volume 88.3 fL (80.0-100.0); Monocytes # (auto) 0.5 uL; Monocytes % (auto) 6.9 % (0.0-12.0); Neutrophils % (auto) 59.5 % (37.0-80.0); Nucleated Red Blood Cells % 0.1 %; Platelet Count (auto) 232 10^3/uL (140-450); Red Blood Cells 4.64 10^6/uL (4.5-5.90); Red Cell Distribution Width 13.5 % (11.8-14.3); White Blood Cell 6.7 10^3/uL (4.4-10.8)
[2019-09-19 01:19] LABS: Albumin 4.1 g/dL (3.4-5.0); Anion Gap 8 (5-15); Blood Urea Nitrogen 37 mg/dL (7-18); Calcium 9.3 mg/dL (8.5-10.1); Carbon Dioxide 26 mmol/L (21-32); Chloride 105 mmol/L (98-107); Glucose 178 mg/dL (74-106); Potassium 4.9 mmol/L (3.5-5.1); Sodium 139 mmol/L (136-145)
[2019-09-19 01:21] LABS: Alanine Aminotransferase 19 U/L (16-61); Aspartate Aminotransferase 8 U/L (15-37); Blood Alcohol < 3.0 mg/dL (0-5); GFR African American 50 mL/min; GFR Non-African American 41 mL/min
[2019-09-19 01:24] LABS: Alkaline Phosphatase 132 U/L (45-117); Bilirubin, Total 0.3 mg/dL (0.2-1.0)
[2019-09-19] MEDS ORDERED: CLOPIDOGREL BISULFATE 75 MG TAB PO ONE (03:15)
[2019-09-19] MEDS ORDERED: ATORVASTATIN 20 MG TAB PO ONE (03:15)
[2019-09-19] MEDS ORDERED: ASPirin-EC 325mg tab PO ONE (03:15)
[2019-09-19 04:00] VITALS: BP 140/79
== END 2019-09-19 04:35 | disposition left against medical advice (07) ==
LOC: ER 22:35
DX: G45.9 Transient cerebral ischemic attack, unspecified (principal); E11.9 Type 2 diabetes mellitus without complications; Z86.73 Personal history of transient ischemic attack (TIA), and cerebral infarction without residual deficits; Z79.4 Long term (current) use of insulin
CPT/HCPCS: 36415; 70450; 80053; 80320; 83735; 85025

== ENCOUNTER → 2019-10-26 | Outpatient (CLI) | payer OTHER ==
[2019-10-26 15:11] LABS: Albumin 4.3 g/dL (3.4-5.0); Calcium 9.2 mg/dL (8.5-10.1); Potassium 4.2 mmol/L (3.5-5.1)
[2019-10-26 15:14] LABS: BUN/Creatinine Ratio 15.8; Bilirubin, Total 0.4 mg/dL (0.2-1.0); Total Protein 7.5 g/dL (6.4-8.2)
== END | disposition home or self-care (01) ==
LOC: LAB 14:22
PROVIDERS: ATTEND Internal Medicine
DX: E11.9 Type 2 diabetes mellitus without complications (principal)
CPT/HCPCS: 36415; 80053; 83036

== ENCOUNTER → 2020-03-20 | Outpatient (CLI) | payer OTHER ==
[2020-03-20 12:51] LABS: Cholesterol 143 mg/dL (< 200); HDL Cholesterol 57 mg/dL (40-59); LDL Cholesterol 70 mg/dL (< 100); Triglycerides 115 mg/dL (< 150)
== END | disposition home or self-care (01) ==
LOC: LAB 11:50
PROVIDERS: ATTEND Internal Medicine
DX: Z12.11 Encounter for screening for malignant neoplasm of colon (principal); E11.9 Type 2 diabetes mellitus without complications
CPT/HCPCS: 36415; 80061; 82043; 83036

== ENCOUNTER → 2020-03-21 | Outpatient (CLI) | payer OTHER ==
[2020-03-21 11:26] LABS: Albumin 3.9 g/dL (3.4-5.0); Calcium 8.8 mg/dL (8.5-10.1); Potassium 4.7 mmol/L (3.5-5.1)
[2020-03-21 11:30] LABS: BUN/Creatinine Ratio 17.5; Bilirubin, Total 0.4 mg/dL (0.2-1.0); Total Protein 6.8 g/dL (6.4-8.2)
== END | disposition home or self-care (01) ==
LOC: LAB 10:33
PROVIDERS: ATTEND Internal Medicine
DX: Z12.11 Encounter for screening for malignant neoplasm of colon (principal); E11.9 Type 2 diabetes mellitus without complications; Z12.5 Encounter for screening for malignant neoplasm of prostate
CPT/HCPCS: 36415; 80053; 84153

== ENCOUNTER → 2020-04-18 | Outpatient (CLI) | payer OTHER ==
[~2020-04-18] MED LIST changes: -ASP81EC PO; +ASPI-394 PO
== END | disposition home or self-care (01) ==
LOC: LAB 12:57
PROVIDERS: ATTEND Internal Medicine
DX: Z12.11 Encounter for screening for malignant neoplasm of colon (principal); E11.9 Type 2 diabetes mellitus without complications
CPT/HCPCS: 82270

== ENCOUNTER → 2020-05-08 | Outpatient (CLI) | payer OTHER ==
[2020-05-08 11:35] LABS: Potassium 4.3 mmol/L (3.5-5.1)
[2020-05-08 11:48] LABS: Albumin 3.8 g/dL (3.4-5.0); BUN/Creatinine Ratio 13.8; Bilirubin, Total 0.4 mg/dL (0.2-1.0); Total Protein 7.2 g/dL (6.4-8.2)
== END | disposition home or self-care (01) ==
LOC: LAB 10:32
PROVIDERS: ATTEND Internal Medicine
DX: E11.9 Type 2 diabetes mellitus without complications (principal)
CPT/HCPCS: 36415; 80053

== ENCOUNTER → 2020-05-15 | Outpatient (CLI) | payer OTHER ==
[2020-05-15 11:47] LABS: Calcium 8.5 mg/dL (8.5-10.1); Potassium 4.5 mmol/L (3.5-5.1)
[2020-05-15 11:50] LABS: BUN/Creatinine Ratio 13.4
== END | disposition home or self-care (01) ==
LOC: LAB 10:58
PROVIDERS: ATTEND Internal Medicine
DX: E11.9 Type 2 diabetes mellitus without complications (principal)
CPT/HCPCS: 36415; 80048

== ENCOUNTER → 2020-07-10 | Outpatient (CLI) | payer OTHER | END | disposition home or self-care (01) | LOC: LAB 10:27 | PROVIDERS: ATTEND Internal Medicine | DX: E11.9 Type 2 diabetes mellitus without complications (principal) | CPT/HCPCS: 36415; 83036 ==

== ENCOUNTER → 2021-04-20 | Outpatient (CLI) | payer OTHER ==
[2021-04-20 13:16] LABS: Basophils # (auto) 0.1 10 ^3/uL (0-0.2); Basophils % (auto) 1.8 % (0.0-2.0); Eosinophils # (auto) 0.2 10 ^3/uL (0-0.8); Eosinophils % (auto) 3.1 % (0.0-7.0); Hematocrit 38.1 % (41.0-53.0); Hemoglobin 13.7 g/dL (13.5-17.5); Lymphocytes # (auto) 1.4 10 ^3/uL (0.4-5.4); Lymphocytes % (auto) 27.9 % (10.0-50.0); Mean Corpuscular Hemoglobin 31.6 pg (28.0-32.0); Mean Corpuscular Volume 87.7 fL (80.0-100.0); Monocytes # (auto) 0.4 10 ^3/uL (0-1.3); Neutrophils # (auto) 2.9 10 ^3/uL (1.6-8.6); Neutrophils % (auto) 58.2 % (37.0-80.0); Nucleated Red Blood Cells % 0.1 %; Red Blood Cells 4.35 10^6/uL (4.5-5.90); Red Cell Distribution Width 13.7 % (11.8-14.3)
[2021-04-20 13:37] LABS: Urine Bacteria FEW /hpf (None Seen); Urine Blood TRACE /uL (Negative); Urine Hyaline Cast FEW /lpf (0 - 2); Urine Mucus FEW (None Seen); Urine WBC 1 /hpf (0 - 3)
[2021-04-20 13:39] LABS: Albumin 3.7 g/dL (3.4-5.0); Potassium 4.5 mmol/L (3.5-5.1)
[2021-04-20 13:52] LABS: BUN/Creatinine Ratio 19.3; Bilirubin, Total 0.4 mg/dL (0.2-1.0); Calcium 8.8 mg/dL (8.5-10.1); Total Protein 7.2 g/dL (6.4-8.2)
== END | disposition home or self-care (01) ==
LOC: LAB 11:48
PROVIDERS: ATTEND Internal Medicine
DX: Z12.11 Encounter for screening for malignant neoplasm of colon (principal); I12.9 Hypertensive chronic kidney disease with stage 1 through stage 4 chronic kidney disease, or unspecified chronic kidney disease; N18.30 Chronic kidney disease, stage 3 unspecified; E78.5 Hyperlipidemia, unspecified
CPT/HCPCS: 36415; 80053; 80061; 80185; 81001; 82043; 83036; 84153; 85025

== ENCOUNTER 2021-05-01 14:22 | Emergency (ER) | payer OTHER ==
[~2021-05-01] VITALS: Ht 185.4 cm; Wt 89.4 kg
[2021-05-01 14:37] VITALS: BP 80/50
[2021-05-01] MEDS ORDERED: SODIUM CHLORIDE 0.9% 1,000 ML IV ONE ×2 (15:15)
[2021-05-01 16:36] LABS: Basophils # (auto) 0 10 ^3/uL (0-0.2); Eosinophils # (auto) 0.1 10 ^3/uL (0-0.8); Lymphocytes # (auto) 1.4 10 ^3/uL (0.4-5.4); Lymphocytes % (auto) 29.8 % (10.0-50.0); Mean Corpuscular Hemoglobin 30.5 pg (28.0-32.0); Mean Corpuscular Hgb Conc. 34.2 g/dL (32.0-36.0); Mean Corpuscular Volume 89.3 fL (80.0-100.0); Monocytes # (auto) 0.4 10 ^3/uL (0-1.3); Neutrophils # (auto) 2.8 10 ^3/uL (1.6-8.6); Neutrophils % (auto) 59.2 % (37.0-80.0); Nucleated Red Blood Cells % 0.1 %; Red Cell Distribution Width 13.5 % (11.8-14.3); White Blood Cell 4.7 10^3/uL (4.4-10.8)
[2021-05-01 16:52] LABS: Anion Gap 6 (5-15); Blood Urea Nitrogen 25 mg/dL (7-18); Calcium 8.6 mg/dL (8.5-10.1); Carbon Dioxide 27 mmol/L (21-32); Chloride 101 mmol/L (98-107); Glucose 380 mg/dL (74-106); Potassium 4.9 mmol/L (3.5-5.1); Sodium 134 mmol/L (136-145)
[2021-05-01 16:54] LABS: BUN/Creatinine Ratio 13.8; GFR African American 48 mL/min; GFR Non-African American 39 mL/min
[2021-05-01 17:01] LABS: Alanine Aminotransferase 27 U/L (16-61); Alkaline Phosphatase 124 U/L (45-117); Aspartate Aminotransferase 8 U/L (15-37); Bilirubin, Total 0.4 mg/dL (0.2-1.0); Total Protein 7.5 g/dL (6.4-8.2)
== END 2021-05-01 21:30 | disposition home or self-care (01) ==
LOC: ER 14:22
DX: I95.9 Hypotension, unspecified (principal); E11.65 Type 2 diabetes mellitus with hyperglycemia; R07.89 Other chest pain; E78.5 Hyperlipidemia, unspecified; Z79.4 Long term (current) use of insulin
CPT/HCPCS: 36415; 71046; 80053; 84484; 85025; 93005

== ENCOUNTER → 2021-10-24 | Outpatient (CLI) | payer OTHER ==
[2021-10-24 11:29] LABS: Basophils # (auto) 0 10 ^3/uL (0-0.2); Basophils % (auto) 0.9 % (0.0-2.0); Eosinophils # (auto) 0.2 10 ^3/uL (0-0.8); Eosinophils % (auto) 4.7 % (0.0-7.0); Hematocrit 38.8 % (41.0-53.0); Hemoglobin 13.5 g/dL (13.5-17.5); Lymphocytes # (auto) 1.5 10 ^3/uL (0.4-5.4); Lymphocytes % (auto) 36.3 % (10.0-50.0); Mean Corpuscular Hemoglobin 30.5 pg (28.0-32.0); Mean Corpuscular Hgb Conc. 34.8 g/dL (32.0-36.0); Mean Corpuscular Volume 87.4 fL (80.0-100.0); Monocytes # (auto) 0.4 10 ^3/uL (0-1.3); Monocytes % (auto) 10.2 % (0.0-12.0); Neutrophils # (auto) 1.9 10 ^3/uL (1.6-8.6); Neutrophils % (auto) 47.9 % (37.0-80.0); Nucleated Red Blood Cells % 0.1 %; Red Blood Cells 4.44 10^6/uL (4.5-5.90); Red Cell Distribution Width 13.4 % (11.8-14.3); White Blood Cell 4.1 10^3/uL (4.4-10.8)
[2021-10-24 12:00] LABS: Calcium 8.9 mg/dL (8.5-10.1); Potassium 4.6 mmol/L (3.5-5.1)
[2021-10-24 12:06] LABS: BUN/Creatinine Ratio 15.2; Bilirubin, Total 0.3 mg/dL (0.2-1.0); Total Protein 7.2 g/dL (6.4-8.2)
== END | disposition home or self-care (01) ==
LOC: LAB 09:49
PROVIDERS: ATTEND Internal Medicine
DX: E11.9 Type 2 diabetes mellitus without complications (principal)
CPT/HCPCS: 36415; 80053; 83036; 85025

== ENCOUNTER → 2023-02-20 | Outpatient (CLI) | payer OTHER ==
[~2023-02-20] MED LIST changes: -PHE100C PO; +PHEN1CAP60 PO; -SIMV-13 PO; +SIMV40TA18 PO
[2023-02-20 14:31] LABS: Basophils # (auto) 0 10 ^3/uL (0-0.2); Eosinophils # (auto) 0.1 10 ^3/uL (0-0.8); Hematocrit 41.3 % (41.0-53.0); Hemoglobin 14.2 g/dL (13.5-17.5); Lymphocytes # (auto) 1.7 10 ^3/uL (0.4-5.4); Lymphocytes % (auto) 35.6 % (10.0-50.0); Mean Corpuscular Hemoglobin 29.8 pg (28.0-32.0); Mean Corpuscular Hgb Conc. 34.4 g/dL (32.0-36.0); Mean Corpuscular Volume 86.7 fL (80.0-100.0); Monocytes # (auto) 0.4 10 ^3/uL (0-1.3); Monocytes % (auto) 8.7 % (0.0-12.0); Neutrophils # (auto) 2.5 10 ^3/uL (1.6-8.6); Neutrophils % (auto) 51.7 % (37.0-80.0); Nucleated Red Blood Cells % 0.1 %; Red Blood Cells 4.76 10^6/uL (4.5-5.90); Red Cell Distribution Width 13.8 % (11.8-14.3); White Blood Cell 4.9 10^3/uL (4.4-10.8)
[2023-02-20 14:40] LABS: Urine Bacteria NONE SEEN /hpf (None Seen); Urine Blood TRACE /uL (Negative); Urine Hyaline Cast MANY /lpf (0 - 2); Urine Specific Gravity 1.013 (1.001-1.035); Urine WBC 1 /hpf (0 - 3)
[2023-02-20 15:10] LABS: Albumin 3.9 g/dL (3.4-5.0); Calcium 8.8 mg/dL (8.5-10.1); Potassium 4.3 mmol/L (3.5-5.1)
[2023-02-20 15:16] LABS: BUN/Creatinine Ratio 19.1 (10.0-20.0); Bilirubin, Total 0.6 mg/dL (0.2-1.0)
== END | disposition home or self-care (01) ==
LOC: LAB 14:06
PROVIDERS: ATTEND Internal Medicine
DX: E11.9 Type 2 diabetes mellitus without complications (principal); E78.5 Hyperlipidemia, unspecified; N18.30 Chronic kidney disease, stage 3 unspecified
CPT/HCPCS: 36415; 80053; 80061; 81001; 82043; 82570; 83036; 85025

== ENCOUNTER → 2023-03-13 | Outpatient (CLI) | payer OTHER | END | disposition home or self-care (01) | LOC: XYW 15:06 | PROVIDERS: ATTEND Internal Medicine | DX: I35.8 Other nonrheumatic aortic valve disorders (principal); I51.7 Cardiomegaly; G45.9 Transient cerebral ischemic attack, unspecified | CPT/HCPCS: 93306 ==

== ENCOUNTER → 2023-03-19 | Outpatient (CLI) | payer OTHER | END | disposition home or self-care (01) | LOC: XYW 11:05 | PROVIDERS: ATTEND Internal Medicine | DX: I65.23 Occlusion and stenosis of bilateral carotid arteries (principal); Z86.73 Personal history of transient ischemic attack (TIA), and cerebral infarction without residual deficits | CPT/HCPCS: 93886 ==

== ENCOUNTER → 2023-04-02 | Outpatient (CLI) | payer OTHER ==
[2023-04-02 11:37] LABS: Calcium 9.4 mg/dL (8.5-10.1); Potassium 3.9 mmol/L (3.5-5.1)
[2023-04-02 11:41] LABS: BUN/Creatinine Ratio 16.2 (10.0-20.0)
== END | disposition home or self-care (01) ==
LOC: LAB 10:47
PROVIDERS: ATTEND Internal Medicine
DX: E11.22 Type 2 diabetes mellitus with diabetic chronic kidney disease (principal); N18.31 Chronic kidney disease, stage 3a; D72.819 Decreased white blood cell count, unspecified
CPT/HCPCS: 36415; 80048

== ENCOUNTER → 2024-07-26 | Outpatient (CLI) | payer OTHER ==
[~2024-07-26] MED LIST changes: +ASPI1TAB20 PO; -ATOR20TA50 PO; +CLOP75TA70 PO; +PHEN1CAP38 PO; -PHEN1CAP60 PO
[2024-07-26 15:10] LABS: Chloride 107 mmol/L (98-107); Potassium 4.1 mmol/L (3.5-5.1); Sodium 141 mmol/L (136-145)
[2024-07-26 15:11] LABS: Anion Gap 7 (5-15); Calcium 9.9 mg/dL (8.7-10.4); Carbon Dioxide 27 mmol/L (20-31)
[2024-07-26 15:16] LABS: BUN/Creatinine Ratio 14.9 (10.0-20.0); Blood Urea Nitrogen 23 mg/dL (9-23); Glucose 186 mg/dL (74-106)
[2024-07-26 16:01] LABS: Creatinine, Urine 190.09 mg/dL (30.0-125.0)
== END | disposition home or self-care (01) ==
LOC: LAB 14:25
PROVIDERS: ATTEND Internal Medicine
DX: E11.42 Type 2 diabetes mellitus with diabetic polyneuropathy (principal)
CPT/HCPCS: 36415; 80048; 82043; 82570; 83036